=== PATIENT | female | born 1975 | race Caucasian/White ===

== ENCOUNTER 2021-02-20 18:11 | Emergency (ER) | payer BC, SELFPAY ==
--- NOTE | ~2021-02-20 | CT_ITS ---
EXAMINATION: CTA brain carotid DATE: 02/20/2021 19:58 INDICATION: Headache with visual change. TECHNIQUE: Computed tomographic angiography (CTA) of the head was performed without and with 100 mL O mnipaque-350 intravenous contrast. CTA of the neck was performed with intravenous contrast. Automated exposure control and iterative reconstruction technique were employed. The dose-length product was 1 747.93 mGy-cm. Maximum intensity projection and volume rendered 3D-reconstructions were created by e technologist on a separate workstation. COMPARISON: Head CT 09/01/2005 FINDINGS: HEAD CTA: There is no intracranial hemorrhage, acute infarction, or abnormal intracranial mass lesion . The ventricles are normal in size. The orbits are normal. The mastoid air cells are normal. The par anasal sinuses are clear. Left vertebral artery is dominant. There is no significant of stenosis of b asilar artery or the posterior cerebral arteries. There is no significant stenosis of the intracrania l internal carotid arteries or anterior or middle cerebral arteries. Anterior communicating artery is normal. The posterior communicating arteries are normal. There is no aneurysm. NECK CTA: There is mild emphysema. There are widespread groundglass opacities in the lungs with septa l thickening. There are nodules in the lungs measuring up to 7 mm on the right. There is mild mediast inal lymphadenopathy. There are nodules in the thyroid measuring up to 12 mm, likely not clinically s ignificant. There is no significant stenosis of the vertebral arteries. There is minimal plaque in th e proximal internal carotid arteries. There is 0% stenosis of the proximal right internal carotid art mil relative to normal distal artery lumen diameter (NASCET criteria). There is 0% stenosis of the pr oximal left internal carotid artery relative to normal distal artery lumen diameter. There is moderat e cervical spondylosis. IMPRESSION: 1. Normal brain. No aneurysm or significant intracranial arterial stenosis. 2. 0% stenosis of the proximal internal carotid arteries relative to normal distal artery lumen diame ters (NASCET criteria). 3. Diffuse disease at the visualized portions of the lung apices, likely mild pulmonary edema. 4. Mild emphysema. 5. Pulmonary nodules measuring up to 7 mm, probably benign. Noncontrast, low-dose chest CT is recomme nded in 6 months. 6. Mild mediastinal lymphadenopathy. Reviewed, dictated and finalized at location A. IMPRESSION: 1. Normal brain. No aneurysm or significant intracranial arterial stenosis. 2. 0% stenosis of the proximal internal carotid arteries relative to normal dis daryl artery lumen diameters (NASCET criteria). 3. Diffuse disease at the visualized portions of the lung apices, likely mild p ulmonary edema. 4. Mild emphysema. 5. Pulmonary nodules measuring up to 7 mm, probably benign. Noncontrast, low-do se chest CT is recommended in 6 months. 6. Mild mediastinal lymphadenopathy.
[2021-02-20 18:17] VITALS: BP 147/90; PULSE 120; RESP 18; TEMP 36; O2SAT 98
--- NOTE | 2021-02-20 18:31 | ECG_ITS ---
Measurements Intervals [place] Rate: 41 P: [place]: 0 QRS: 210 QRSD: 154 T: -83 QT: 662 QTc: 548 Interpretive Statements SINUS RHYTHM INCOMPLETE RIGHT BUNDLE BRANCH BLOCK DELAYED PRECORDIAL R/S TRANSITION MINIMAL Q WAVES- INFERIOR LEADS BORDERLINE T WAVE ABNORMALITY- ANT/INF LEADS BASELINE ARTIFACT- II, III, AVR, AVF, V3-V6 BORDERLINE ECG Electronically Signed On 02-21-2021 15:32:48 CDT by Obey Doyle D.O.
[2021-02-20 18:54] LABS: Basophils Percent Auto 0.4 % (0.2-1.2); Eosinophils Absolute Auto 0.2 K/mm3 (0-0.3); Eosinophils Percent Auto 1.6 % (0-4.4); Hematocrit 45.8 % (37.0-47.0); Hemoglobin 15.5 g/dL (12.0-15.0); Immature Granulocyte Absolute 0.05 K/mm3 (0.00-0.031); Immature Granulocyte Percent A 0.5 % (0-0.5); Lymphocytes Absolute Auto 2.72 K/mm3 (0.9-3.2); Lymphocytes Percent Auto 27.5 % (18.3-44.2); Mean Corpuscular HGB Conc 33.8 g/dl (32-36); Mean Corpuscular Hemoglobin 32.3 pg (26-34); Mean Corpuscular Volume 95.4 fl (80-100); Mean Platelet Volume 9.1 fl (7.4-10.4); Monocytes Absolute Auto 0.4 K/mm3 (0.1-0.6); Monocytes Percent Auto 4.4 % (2.6-8.5); Neutrophils Absolute Auto 6.5 K/mm3 (1.3-6.7); Neutrophils Percent Auto 65.6 % (45.5-73.1); Platelet Count Result 356 k/mm3 (150-375); White Blood Count 9.9 K/mm3 (4.5-10.0)
[2021-02-20 19:10] LABS: Anion Gap 8 mmol/L (8-16); Blood Urea Nitrogen 8 mg/dL (7-17); Calcium 9.9 mg/dL (8.4-10.2); Carbon Dioxide 28 mmol/L (22-30); Chloride 102 mmol/L (98-107); Estimated Glomerular Filt Rate > 60; Glucose 142 mg/dL (65-105); Potassium 3.7 mmol/L (3.4-5.0); Sodium 138 mmol/L (137-145)
[2021-02-20 19:22] LABS: Troponin I < 0.012 ng/mL (0.000-0.034)
--- NOTE | 2021-02-20 19:24 | ED.GENADULT ---
HPI - General Adult General Chief complaint: Neuro Symptoms/Deficit Stated complaint: vision changes/ neuro sx Time Seen by Provider: 02/20/21 18:25 History of Present Illness HPI narrative: Patient is a 46-year-old female who presents ER with visual changes. Occurred about 3 PM. Reports she was driving when she had 15 seconds of cloudy vision in her right eye. After that she developed a headache from the back of her head bubbling towards the front of her head. This has been happening to her intermittently over the last couple months. Occasionally will be both eyes and it is typically associated with a headache that comes afterwards. Patient also has history of chronic headaches related to a accident in years past but these headaches are different. She has no facial droop or slurred speech or extremity numbness/weakness when this occurs. No history of CVA. She does report she has a history of elevated heart rate. Related Data Home Medications Medication Instructions Recorded Confirmed No Home Medications 02/20/21 Allergies Allergy/AdvReac Type Severity Reaction Status Date / Time prednisone Allergy Intermediate vomit Verified 02/20/21 18:41 aspirin Allergy Unknown abdominal Verified 02/20/21 18:41 pain morphine Allergy Unknown Anaphylactic Verified 02/20/21 18:41 Shock Review of Systems Review of Systems: All systems reviewed & are unremarkable except as noted in HPI and below Constitutional: Constitutional: Denies chills, Denies fever(s) and Denies weakness Eyes: Eyes: Reports change in vision and Denies photophobia Cardiovascular: Cardiovascular: Denies chest pain, Reports rapid heart rate and Denies radiating jaw, neck or arm pain Respiratory: Respiratory: Denies cough and Denies dyspnea Neurologic: Denies dizziness, Denies syncope, Reports headache(s), Denies focal weakness, Denies numbness and Denies weakness PMF Past Medical History Medical History (Updated 02/20/21 @ 21:15 by Kraig Feldman MD) Allergic asthma Chronic headaches Mixed hyperlipidemia Surgical History Surgical History (Updated 02/20/21 @ 19:26 by Kraig Feldman MD) History of tubal ligation Family History Family History (Updated 07/01/18 @ 15:45 by DOCTOR UNKNOWN) Father Diabetes mellitus Family history of cardiovascular disease Family history of malignant neoplasm of brain, Onset Age: 62 Mother Diabetes mellitus Hypertension Patient's mother is in good health Family history of cardiovascular disease Sibling Patient's sister is in good health Patient's brother is in good health Social History Social History (Updated 09/13/19 @ 10:26 by Isabell Alford) Smoking packs per day: 0.5 Smoking cigarettes per day: 10.0 Smoking status: Current every day smoker Tobacco type: cigarettes Second hand tobacco smoke exposure: Yes Alcohol intake: never Substance use: never Substance use type: does not use Gender identity (if verbalized by the patient): Female Exam Narrative: Exam Narrative: GENERAL: Well-appearing, well-nourished, and in no acute distress. HEAD: Normocephalic, atraumatic. EYES: PERRLA and EOMI. ENT: Mucous membranes moist. CHEST: Clear to auscultation. No respiratory distress. HEART: Regular rate and rhythm. Normal peripheral pulses. ABDOMEN: Soft, nontender, nondistended. EXTREMITIES: Normal range of motion. No edema. SKIN: Warm, dry, no rash. NEURO: No upper or lower extremity drift. Cranial nerves II through XII intact. No dysarthria or expressive aphasia. Alert and oriented x3. Course Course Emergency Course: Resting comfortably. No symptoms here. Discharge home. Informed of abnormal lung findings. She has follow-up with Dr. Penn scheduled. Vital Signs Vital signs: Vital Signs Temperature 96.8 F L 02/20/21 18:17 Pulse Rate 120 H 02/20/21 18:17 Respiratory Rate 18 02/20/21 18:17 Blood Pressure 147/90 H
[2021-02-20 19:28] LABS: Prothrombin Time 13.8 Seconds (11.1-14.7)
[2021-02-20 19:29] LABS: Partial Thromboplastin Time 31.5 SECONDS (22.3-36.8)
[2021-02-20 21:26] VITALS: BP 137/86; PULSE 94; RESP 16; TEMP 36.8; O2SAT 98
== END 2021-02-20 21:27 | disposition home or self-care (01) ==
PROVIDERS: Emergency Provider Emergency Medicine
DX: G43.909 Migraine, unspecified, not intractable, without status migrainosus (principal); E78.2 Mixed hyperlipidemia; J45.909 Unspecified asthma, uncomplicated; F17.210 Nicotine dependence, cigarettes, uncomplicated; J43.9 Emphysema, unspecified; R91.8 Other nonspecific abnormal finding of lung field; R00.0 Tachycardia, unspecified; I45.10 Unspecified right bundle-branch block; R94.31 Abnormal electrocardiogram [ECG] [EKG]
CPT/HCPCS: 36415; 70496; 70498; 80048; 81025; 84484; 85025; 85610; 85730; 93005; 99284; Q9967

== ENCOUNTER 2021-03-12 12:09 | Outpatient (CLI) | payer BC, SELFPAY ==
--- NOTE | 2021-03-12 12:28 | ECHO_ITS ---
Patient Info Name: Prema Oswald Age: 46 years : 1975 Gender: Female Ht: 65 in Wt: 207 lbs BSA: 2.11 m2 HR: 95 bpm BP: 132 / 85 mmHg Technical Quality: Good Exam Date: 03/12/2021 1:07 PM Exam Location: [facility] Pulmonary Patient Status: Outpatient Admit Date: 03/12/2021 Staff Ordering Physician: Hortensia Mulligan Mobile Security Specialist: ISABEL Attending Provider: Hortensia Mulligan Referring Physician: Ese BERNSTEIN; Exam Type: CA echo doppler color flow Study Info Indications J81.1 - Chronic pulmonary edema Complete two-dimensional, color flow and Doppler transthoracic echocardiogram is performed. Summary 1. Complete two-dimensional, color flow and Doppler transthoracic echocardiogram is performed. 2. Left ventricular chamber dimension is normal. 3. Left ventricular systolic function is normal, estimated at 65-70%. 4. The left ventricular diastolic function is normal. 5. E/e' 7 is not elevated. 6. No pulmonary hypertension, estimated pulmonary arterial systolic pressure is 17 mmHg. Left Ventricle E/e' 7 is not elevated. Left ventricular chamber dimension is normal. Left ventricular systolic function is normal, estimated at 65-70%. The left ventricular diastolic function is normal. Right Ventricle Right ventricular chamber dimension is normal. Right ventricular systolic function is normal. Left Atria Left atrial chamber dimension is normal. Right Atria Right atrial chamber dimension is normal. Aortic Valve The aortic valve is trileaflet. There is no aortic valve stenosis. There is no aortic valve regurgitation. Pulmonic Valve There is no pulmonic regurgitation. Mitral Valve There is no mitral valve stenosis. There is no mitral valve regurgitation. Tricuspid Valve There is no tricuspid valve regurgitation. No pulmonary hypertension, estimated pulmonary arterial systolic pressure is 17 mmHg. Pericardium/Pleural There is no pericardial effusion. Inferior Vena Cava Normal inferior vena cava with >50% collapse upon inspiration consistent with normal right atrial pressure, 5 mmHg. Aorta The aortic root size at the sinus of Valsalva is normal. Left Ventricular Outflow Tract Name Value Normal LVOT 2D LVOT Diameter 2.1 cm LVOT Doppler LVOT Peak Gradient 3 mmHg LVOT Mean Gradient 2 mmHg LVOT VTI 18 cm LVOT VTI/AV VTI Ratio 0.8 LVOT Stroke Volume 61 ml LVOT CO 12.6 l/min LVOT CI 6.0 l/min/m2 Pulmonic Valve Name Value Normal PV Doppler PV Peak Gradient 7 mmHg Mitral Valve Name
== END 2021-03-12 12:10 | disposition home or self-care (01) ==
PROVIDERS: PCP Internal Medicine; Visit Provider Clinical Nurse Specialist
DX: J81.1 Chronic pulmonary edema (principal)
CPT/HCPCS: 93306

== ENCOUNTER 2022-07-14 10:57 | Outpatient (CLI) | payer BC, SELFPAY ==
[2022-07-14 19:07] LABS: Basophils Percent Auto 0.4 % (0.2-1.2); Eosinophils Absolute Auto 0.2 K/mm3 (0-0.3); Eosinophils Percent Auto 2.4 % (0-4.4); Hematocrit 43.7 % (37.0-47.0); Immature Granulocyte Absolute 0.02 K/mm3 (0.00-0.031); Immature Granulocyte Percent A 0.2 % (0-0.5); Lymphocytes Absolute Auto 2.54 K/mm3 (0.9-3.2); Lymphocytes Percent Auto 24.9 % (18.3-44.2); Mean Corpuscular Hemoglobin 30.2 pg (26-34); Mean Corpuscular Volume 94.4 fl (80-100); Mean Platelet Volume 10.1 fl (7.4-10.4); Monocytes Absolute Auto 0.3 K/mm3 (0.1-0.6); Monocytes Percent Auto 3.3 % (2.6-8.5); Neutrophils Percent Auto 68.8 % (45.5-73.1); Platelet Count Result 337 k/mm3 (150-375); Red Blood Count 4.63 M/mm3 (4.2-5.4); Red Cell Distribution Width 13.6 % (11.5-14.5); White Blood Count 10.2 K/mm3 (4.5-10.0)
[2022-07-14 19:18] LABS: Alanine Aminotransferase 45 U/L (6-35); Albumin Level 4.4 g/dL (3.5-5.1); Alkaline Phosphatase 124 U/L (38-126); Anion Gap 12 mmol/L (8-16); Aspartate Amino Transferase 47 U/L (14-36); Bilirubin,Total 0.4 mg/dL (0.2-1.3); Blood Urea Nitrogen 10 mg/dL (7-17); Calcium 9.5 mg/dL (8.4-10.2); Carbon Dioxide 29 mmol/L (22-30); Chloride 100 mmol/L (98-107); Cholesterol 166 mg/dL (0-200); Estimated Glomerular Filt Rate > 60; Glucose 84 mg/dL (65-110); HDL Direct 35 mg/dL; Magnesium 2.1 mg/dL (1.6-2.3); Potassium 4.3 mmol/L (3.4-5.0); Sodium 141 mmol/L (137-145); Triglycerides 174 mg/dL (<150)
[2022-07-14 19:29] LABS: LDL Cholesterol Direct 90 mg/dL
[2022-07-14 19:40] LABS: Iron 65 ug/dL (37-170)
[2022-07-14 19:40] LABS: Hemoglobin A1C 5.4 % (<5.7)
[2022-07-14 19:53] LABS: Appearance Urine Clear (Clear); Bilirubin Urine Negative (Negative); Blood Urine Negative (Negative); Color Urine Yellow (Yellow); Glucose Urine UA Negative (Negative); Ketones Urine Negative (Negative); Leukocyte Esterase Ur Negative LEU/UL (Negative); Nitrate Urine Negative (Negative); Protein Urine Negative (Negative); Urobilinogen Urine 0.2 mg/dL (<2.0)
[2022-07-14 19:54] LABS: Add Urine Microscopic? NO; Percent Iron Saturation 16 % (20-50)
[2022-07-14 20:49] LABS: Vitamin D 25 Hydroxy 28.8 ng/mL
== END 2022-07-14 10:58 | disposition home or self-care (01) ==
LOC: ANHGOSHLAB 11:02
PROVIDERS: PCP Internal Medicine; Visit Provider Clinical Nurse Specialist
DX: Z13.228 Encounter for screening for other metabolic disorders (principal); E78.2 Mixed hyperlipidemia; E55.9 Vitamin D deficiency, unspecified; F41.9 Anxiety disorder, unspecified; R25.2 Cramp and spasm; R73.9 Hyperglycemia, unspecified; R31.9 Hematuria, unspecified
CPT/HCPCS: 36415; 80053; 80061; 81003; 82306; 82728; 83036; 83540; 83550; 83735; 84443; 85025

== ENCOUNTER 2022-08-31 02:31 | Emergency (ER) | payer BC, SELFPAY ==
--- NOTE | ~2022-08-31 | XR_ITS ---
EXAMINATION: XR chest 1V portable INDICATION: Cough, asthma TECHNIQUE: Portable AP chest at 0313 hours COMPARISON: 05/02/2019 FINDINGS: The lungs are free of acute opacities. No pleural effusion or pneumothorax. The cardiomedia stinal silhouette is normal. IMPRESSION: 1. No acute cardiopulmonary abnormality. Reviewed, dictated and finalized at location A. PUBLISHER
[2022-08-31 02:33] VITALS: BP 151/71; PULSE 120; RESP 20; TEMP 36.8; O2SAT 97
--- NOTE | 2022-08-31 03:08 | ED.GENADULT ---
HPI - General Adult General Chief complaint: Shortness of Breath/Dyspnea Stated complaint: dyspnea, cough asthma Time Seen by Provider: 08/31/22 02:32 History of Present Illness HPI narrative: 47-year-old female with history of asthma presenting to the emergency department for evaluation of cough and shortness of breath. Patient states on Thursday she went to a client's house and was exposed to a lot of cat dander. Patient states that she began having worsening cough on Thursday and that this is symptoms have persisted. Patient has been using her albuterol inhaler and also used her child's nebulizer without significant improvement. Patient denies any chest pain. Patient denies any history of congestive heart failure. Patient has a past medical history of asthma, emphysema and is currently a smoker. Patient reports she did get vaccinated against COVID but has not been vaccinated against the flu Related Data Home Medications Medication Instructions Recorded Confirmed aspirin 81 mg tablet,delayed 81 mg PO DAILY 03/27/21 07/17/22 release (Adult Aspirin Regimen) Allergies Allergy/AdvReac Type Severity Reaction Status Date / Time prednisone Allergy Intermediate vomit Verified 07/17/22 13:37 aspirin Allergy Unknown abdominal Verified 07/17/22 13:37 pain morphine Allergy Unknown Anaphylactic Verified 07/17/22 13:37 Shock Review of Systems Review of Systems: CONSTITUTIONAL: Denies fever, chills, or sweats. EYES: Denies visual changes, redness, or discharge. ENT: Denies rhinorrhea, congestion, sore throat, or otalgia. CARDIOVASCULAR: Denies chest pain, palpitations, or edema. RESPIRATORY: Cough and shortness of breath GASTROINTESTINAL: Denies abdominal pain, nausea, vomiting, or diarrhea. GENITOURINARY: Denies dysuria or hematuria. SKIN: Denies rash or itching. MUSCULOSKELETAL: Denies back pain, joint pain, or myalgia. NEUROLOGIC: Denies headache, numbness, or weakness. FORMERLY [facility] Past Medical History Medical History Allergic asthma Chronic headaches IBS (irritable bowel syndrome) Mixed hyperlipidemia Surgical History Surgical History H/O exploratory laparotomy History of tubal ligation Family History Family History Father Diabetes mellitus Family history of cardiovascular disease Family history of malignant neoplasm of brain, Onset Age: 62 Depression Heart disease Hypertension Mother Diabetes mellitus Hypertension Patient's mother is in good health Family history of cardiovascular disease Sibling Patient's sister is in good health Patient's brother is in good health Grandparent Depression Cancer Alcoholism Social History Social History Smoking packs per day: 0.5 Smoking cigarettes per day: 10.0 Smoking status: Current every day smoker Tobacco type: cigarettes Second hand tobacco smoke exposure: Yes Alcohol intake: never Substance use: never Substance use type: does not use Gender identity (if verbalized by the patient): Female Exam Narrative: APPEARANCE: Well appearing, no pain, no distress, well-nourished. HEAD: normocephalic, atraumatic. EYES: PERRLA/EOMI, conjunctivae clear. NOSE: Normal no drainage EARS:TMS clear with good light reflex. THROAT: Pharynx clear, no exudate. NECK: Supple. No adenopathy, no masses. RESPIRATORY: Lungs clear to auscultation but patient does have cough CARDIOVASCULAR: Regular rate and rhythm without murmurs rubs or gallops. ABDOMINAL: Soft, nontender, nondistended, normal bowel sounds MUSCULOSKELETAL: Moves all extremities. Strength/ROM intact, No edema, No calf tenderness. NEURO: Alert. Cranial nerves II through XII intact. Grossly intact SKIN: Warm, dry. Normal Color Course Course Emergen
[2022-08-31 03:33] LABS: Influenza A QL RT-PCR Negative (Negative); Influenza B QL RT-PCR Negative (Negative); SARS-CoV-2 RNA PCR Negative
[2022-08-31 03:35] VITALS: PULSE 87; RESP 22; O2SAT 100
[2022-08-31] MEDS: ALBUTEROL SULFATE NEB 2.5 MG/3 ML INH 5 MG INHALATION (03:35)
[2022-08-31 03:54] VITALS: PULSE 90; RESP 20
[2022-08-31] MEDS: BENZONATATE 100 MG CAPSULE 200 MG PO (05:43)
== END 2022-08-31 05:46 | disposition home or self-care (01) ==
PROVIDERS: Emergency Provider Emergency Medicine; PCP Internal Medicine
DX: J18.9 Pneumonia, unspecified organism (principal); J45.909 Unspecified asthma, uncomplicated; Z20.822 Contact with and (suspected) exposure to COVID-19; E78.2 Mixed hyperlipidemia; K58.9 Irritable bowel syndrome, unspecified; F17.210 Nicotine dependence, cigarettes, uncomplicated; Z79.82 Long term (current) use of aspirin
CPT/HCPCS: 71045; 87636; 94640; 99283; A9270

== ENCOUNTER → 2022-09-05 11:15 | Outpatient (CLI) | payer BC, SELFPAY ==
--- NOTE | ~2022-09-05 | XR_ITS ---
XR wrist RT min 3V DATE: 09/05/2022 11:25 INDICATION: Radial right wrist pain for one month TECHNIQUE: 4 views COMPARISON: 04/29/2006 right wrist FINDINGS: No fracture or dislocation, periosteal reaction or bone destruction, erosive change or deuce drocalcinosis. Joint spaces are well preserved. IMPRESSION: Negative Reviewed, dictated and finalized at location B. NING ROOM OPERATOR IMPRESSION: Negative
== END ==
PROVIDERS: PCP Clinical Nurse Specialist; Visit Provider Clinical Nurse Specialist
DX: M25.531 Pain in right wrist (principal)
CPT/HCPCS: 73110

== ENCOUNTER 2022-09-20 22:14 | Emergency (ER) | payer BC, SELFPAY ==
[2022-09-20 22:17] VITALS: BP 143/67; PULSE 94; RESP 18; TEMP 36.8; O2SAT 98
--- NOTE | 2022-09-20 22:39 | ED.ALLEREA ---
HPI - Allergic Reaction General Chief complaint: Allergic Reaction <Karrie Fraser PA-C - Last Filed: 09/20/22 23:38> Stated complaint: swelling in the eye, after doxycycline use <Karrie Fraser PA-C - Last Filed: 09/20/22 23:38> Time Seen by Provider: 09/20/22 22:23 <Karrie Fraser PA-C - Last Filed: 09/20/22 23:38> Source: patient <ALMA Townsend Last Filed: 09/20/22 23:38> Mode of arrival: ambulatory <ALMA Townsend Last Filed: 09/20/22 23:38> Limitations: no limitations <Karrie Fraser PA-C - Last Filed: 09/20/22 23:38> History of Present Illness HPI narrative: This is a 47 year old female that presents to the ER for bilateral eye swelling. Ongoing over the last 4 days. Reports she started Doxycycline for a respiratory infection on Thursday and noted swelling that day. It was associated with redness and discharge from the eyes. She was prescribed Olopatadine with relief of the redness and discharge. Reports she has had continued swelling and pain in the eyes. Denies fever, visual changes. <Karrie Fraesr PA-C - Last Filed: 09/20/22 23:38> Related Data Home medications: Home Medications Medication Instructions Recorded Confirmed aspirin 81 mg tablet,delayed 81 mg PO DAILY 03/27/21 09/17/22 release (Adult Aspirin Regimen) <ALMA Townsend Last Filed: 09/20/22 23:38> Allergies/adverse reactions: Allergies Allergy/AdvReac Type Severity Reaction Status Date / Time prednisone Allergy Intermediate vomit Verified 09/20/22 22:39 aspirin Allergy Unknown abdominal Verified 09/20/22 22:39 pain morphine Allergy Unknown Anaphylactic Verified 09/20/22 22:39 Shock doxycycline Allergy Swelling Verified 09/20/22 22:39 of the Eye <ALMA Townsend Last Filed: 09/20/22 23:38> Review of Systems Review of Systems: CONSTITUTIONAL: Denies fever EYES: Denies current visual changes, redness, or discharge. ENT: Reports congestion CARDIOVASCULAR: Denies chest pain RESPIRATORY: Reports cough GASTROINTESTINAL: Denies vomiting SKIN: Denies rash or itching. MUSCULOSKELETAL: Denies back pain, joint pain, or myalgia. NEUROLOGIC: Denies headache, numbness, or weakness. PSYCHIATRIC: Denies anxiety or depression. <Karrie Fraser PA-C - Last Filed: 09/20/22 23:38> All systems reviewed & are unremarkable except as noted in HPI and below <Karrie Fraser PA-C - Last Filed: 09/20/22 23:38> PENDING SALE TO [facility] Past Medical History Medical History: Medical History Allergic asthma Chronic headaches IBS (irritable bowel syndrome) Mixed hyperlipidemia <Karrie Fraser PA-C - Last Filed: 09/20/22 23:38> Surgical History Surgical History: Surgical History (Reviewed 09/05/22 @ 10:15 by Vonnie Dominguez [facility]) H/O exploratory laparotomy History of tubal ligation <Karrie Fraser PA-C - Last Filed: 09/20/22 23:38> Family History Family History: Family History (Reviewed 09/05/22 @ 10:15 by Vonnie Dominguez [facility]) Father Diabetes mellitus Family history of cardiovascular disease Family history of malignant neoplasm of brain, Onset Age: 62 Depression Heart disease Hypertension Mother Diabetes mellitus Hypertension Patient's mother is in good health Family history of cardiovascular disease Sibling Patient's sister is in good health Patient's brother is in good health Grandparent Depression Cancer Alcoholism <Karrie Fraser PA-C - Last Filed: 09/20/22 23:38> Social History Social History: Social History (Updated 09/05/22 @ 10:27 by Vonnie Dominguez [facility]) Smoking packs per day: 0.5 Smoking cigarettes per day: 10.0 Smoking status: Former smoker Tobacco type: cigarettes Second hand tobacco smoke exposure: Yes Smoking end date: 08/26/22 Alcohol intake: never Substance use: never Substance use type: does n
== END 2022-09-20 23:45 | disposition home or self-care (01) ==
PROVIDERS: Emergency Provider Emergency Medicine; PCP Internal Medicine
DX: T78.40XA Allergy, unspecified, initial encounter (principal); J98.8 Other specified respiratory disorders; J45.909 Unspecified asthma, uncomplicated; K58.9 Irritable bowel syndrome, unspecified; E78.2 Mixed hyperlipidemia; Z87.891 Personal history of nicotine dependence; Z79.82 Long term (current) use of aspirin
CPT/HCPCS: 99282

== ENCOUNTER 2022-10-06 08:31 | Outpatient (CLI) | payer BC, SELFPAY ==
--- NOTE | ~2022-10-06 | CT_ITS ---
Clinical Indication: Pulmonary nodules CT Scan of the Chest with Contrast: Technique: Contiguous sections were acquired throughout the chest after intravenous administration of 75 cc of Omnipaque 350. Dose reduction technique was used on this scan by utilizing automated exposu re control and iterative reconstruction technique. The dose-length product (DLP) was 433.93 mGy-cm. Findings: Subcarinal lymph node is mildly enlarged, measuring 1.2 cm in short axis. There are shotty right para tracheal, right hilar, and AP window lymph nodes. There is no filling defect in the pulmonary arteria l tree to suggest pulmonary embolus. There is no evidence of aortic dissection or aneurysm. There is no evidence of pleural or pericardial effusion. Minimal emphysema present. There are subcentimeter right upper lobe pulmonary nodules measuring up to approximately 4 to 5 mm in diameter (axial images 52, 56, 58). There is a 4 mm noncalcified left upp er lobe pulmonary nodule (axial image 58). There is a 3 mm left lower lobe pulmonary nodule (axial im age 87). Several calcified granulomas are noted. Images through the upper abdomen reveal 1.3 cm left adrenal nodule, indeterminate. Impression: Multiple subcentimeter pulmonary nodules, as detailed above. According to Fleischner Society criteria , for a low-risk patient, no further follow-up required. For a high-risk patient, consider 12 month f ollow-up CT. Minimal emphysema. Minimally prominent mediastinal lymph nodes, as detailed above, nonspecific. Reviewed, dictated and finalized at location [] JUICE WEIGHER Impression: Multiple subcentimeter pulmonary nodules, as detailed above. According to Fleis chner Society criteria, for a low-risk patient, no further follow-up required. For a high-risk patient, consider 12 month follow-up CT. Minimal emphysema. Minimally prominent mediastinal lymph nodes, as detailed above, nonspecific.
== END 2022-10-06 08:32 | disposition home or self-care (01) ==
LOC: ANHIMG 08:35
PROVIDERS: PCP Internal Medicine; Visit Provider Clinical Nurse Specialist
DX: R91.8 Other nonspecific abnormal finding of lung field (principal); J43.9 Emphysema, unspecified
CPT/HCPCS: 71260; Q9967

== ENCOUNTER 2023-01-20 11:45 | Outpatient (CLI) | payer BC, SELFPAY ==
[2023-01-23 15:03] LABS: NIL 0.05 IU/mL; Quantiferon TB Plus, 1T NEGATIVE (NEGATIVE); TB1-NIL 0.03 IU/mL; TB2-NIL 0.03 IU/mL
== END 2023-01-20 11:46 | disposition home or self-care (01) ==
LOC: ANHGOSHLAB 11:45
PROVIDERS: PCP Internal Medicine; Visit Provider Clinical Nurse Specialist
DX: Z11.1 Encounter for screening for respiratory tuberculosis (principal)
CPT/HCPCS: 36415; 86480

== ENCOUNTER 2023-08-11 21:14 | Emergency (ER) | payer BC, SELFPAY ==
--- NOTE | 2023-08-11 21:15 | PC.NURSE ---
patient states wait is too long and left before triage
== END 2023-08-11 21:46 | disposition left against medical advice (07) ==
PROVIDERS: PCP Internal Medicine
DX: Z53.21 Procedure and treatment not carried out due to patient leaving prior to being seen by health care provider (principal)
CPT/HCPCS: 99199

== ENCOUNTER 2024-01-27 10:48 | Outpatient (CLI) | payer BC, SELFPAY ==
[2024-01-27 13:03] LABS: Basophils Percent Auto 0.4 % (0.2-1.2); Eosinophils Absolute Auto 0.2 K/mm3 (0-0.3); Eosinophils Percent Auto 2.1 % (0-4.4); Hematocrit 42.9 % (37.0-47.0); Hemoglobin 13.7 g/dL (12.0-15.0); Immature Granulocyte Absolute 0.02 K/mm3 (0.00-0.031); Immature Granulocyte Percent A 0.3 % (0-0.5); Lymphocytes Absolute Auto 2.84 K/mm3 (0.9-3.2); Mean Corpuscular HGB Conc 31.9 g/dl (32-36); Mean Corpuscular Hemoglobin 30.2 pg (26-34); Mean Corpuscular Volume 94.5 fl (80-100); Mean Platelet Volume 9.5 fl (7.4-10.4); Monocytes Absolute Auto 0.4 K/mm3 (0.1-0.6); Monocytes Percent Auto 5.3 % (2.6-8.5); Neutrophils Absolute Auto 4.2 K/mm3 (1.3-6.7); Neutrophils Percent Auto 54.9 % (45.5-73.1); Platelet Count Result 315 k/mm3 (150-375); Red Blood Count 4.54 M/mm3 (4.2-5.4); Red Cell Distribution Width 13.8 % (11.5-14.5); White Blood Count 7.7 K/mm3 (4.5-10.0)
[2024-01-27 13:17] LABS: Alanine Aminotransferase 50 U/L (6-35); Alkaline Phosphatase 122 U/L (38-126); Anion Gap 9 mmol/L (4-12); Aspartate Amino Transferase 65 U/L (14-36); Bilirubin,Total 0.5 mg/dL (0.2-1.3); Blood Urea Nitrogen 16 mg/dL (7-17); Calcium 10.5 mg/dL (8.4-10.2); Carbon Dioxide 29 mmol/L (22-30); Chloride 103 mmol/L (98-107); Cholesterol 155 mg/dL (0-200); Estimated Glomerular Filt Rate > 60; Glucose 106 mg/dL (65-110); HDL Direct 47 mg/dL; Potassium 4.4 mmol/L (3.4-5.0); Sodium 141 mmol/L (137-145); Triglycerides 113 mg/dL (<150)
[2024-01-27 13:28] LABS: LDL Cholesterol Direct 86 mg/dL
[2024-01-27 14:35] LABS: Vitamin D 25 Hydroxy 20.8 ng/mL
[2024-01-27 17:25] LABS: Hemoglobin A1C 5.3 % (<5.7)
== END 2024-01-27 10:49 | disposition home or self-care (01) ==
LOC: ANHGOSHLAB 10:50
PROVIDERS: PCP Clinical Nurse Specialist; Visit Provider Clinical Nurse Specialist
DX: E55.9 Vitamin D deficiency, unspecified (principal); F41.9 Anxiety disorder, unspecified; R73.09 Other abnormal glucose; Z13.220 Encounter for screening for lipoid disorders; Z13.228 Encounter for screening for other metabolic disorders
CPT/HCPCS: 36415; 80053; 80061; 82306; 83036; 84443; 85025

== ENCOUNTER 2024-02-11 08:49 | Outpatient (CLI) | payer BC, SELFPAY ==
--- NOTE | 2024-02-17 19:46 | WPDHOMESLEEP ---
Sleep Study - Home Unattended Date of Study: 02/11/24 Ordering Provider: MARY Parikh-Erasmo Interpreting Provider: Maddie Linares DO Home Sleep Study Type: Watch PAT Height: 1.65 m Weight: 101.605 kg Body Mass Index: 37.3 Neck Circumference (inches): 16.5 Harrell: 3 Reason for Sleep Study Hypersomnia Sleep History The patient is a 49-year-old female with asthma, chronic headaches, irritable bowel syndrome, hyperlipidemia, pulmonary nodules and history of tobacco use that had a sleep study ordered by her primary care for evaluation of sleep apnea. The sleep history forms were unavailable. [facility] Past Medical History Medical History Allergic asthma Chronic headaches IBS (irritable bowel syndrome) Mixed hyperlipidemia Tobacco dependence due to cigarettes Quit 1 year ago. Surgical History Surgical History H/O exploratory laparotomy History of tubal ligation Family History Family History Father Diabetes mellitus Family history of cardiovascular disease Family history of malignant neoplasm of brain, Onset Age: 62 Depression Heart disease Hypertension Mother Diabetes mellitus Hypertension Patient's mother is in good health Family history of cardiovascular disease Sibling Patient's sister is in good health Patient's brother is in good health Grandparent Depression Cancer Alcoholism Social History Social History Social History: Caffeine- Smoking packs per day: 0.5 Smoking cigarettes per day: 10.0 Smoking status: Former smoker Tobacco type: cigarettes Second hand tobacco smoke exposure: Yes Smoking end date: 08/26/22 Alcohol intake: never Substance use: never Substance use type: does not use Lack of Transportation: No Lack of Food: Sometimes True Current Housing: I Have Housing Concerned About Future Housing: No Difficulty Paying Gas/Electric Bills: No Difficulty Paying for Meds: No Currently Unemployed: No Education: Associate Degree Difficulty w/ Childcare or Family Care: YES Living arrangements: with family Occupation/Education: occupation Gender identity (if verbalized by the patient): Female Medications Home Medications Medication Instructions Recorded Confirmed Type aspirin 81 mg tablet,delayed 81 mg PO DAILY 03/27/21 01/27/24 History release (Adult Aspirin Regimen) triamcinolone acetonide 0.1 % 1 applic topical TID #30 grams 07/17/22 01/27/24 Rx topical cream ondansetron 4 mg disintegrating 4 mg PO Q8H PRN nausea and 08/31/22 01/27/24 Rx tablet vomiting #14 tabs benzonatate 100 mg capsule 100 mg PO TID PRN cough #30 caps 10/05/23 01/27/24 Rx albuterol sulfate 2.5 mg/0.5 mL 5 mg inhalation Q6H PRN 01/28/24 Rx solution for nebulization bronchospasm #30 ea albuterol sulfate 90 mcg/actuation 1 puff inhalation Q4H PRN 01/28/24 Rx aerosol inhaler shortness of breath or wheezing #8.5 grams atorvastatin 10 mg tablet See Rx Instructions .Route 01/28/24 Rx .COMPLEX #90 tabs buspirone 10 mg tablet 10 mg PO BID PRN anxiety #180 tabs 01/28/24 Rx semaglutide (weight loss) 0.25 0.25 mg (0.5 mL) subcut WEEKLY #2 01/28/24 Rx mg/0.5 mL subcutaneous pen mL injector (Wegovy) sertraline 100 mg tablet See Rx Instructions .Route 01/28/24 Rx .COMPLEX #90 tabs Sleep Procedure The sleep study was completed using WatchPAT a technically adequate device with seven channels: peripheral arterial tone, actigraphy, body position, snore, respiratory movement, pulse oximetry, sleep staging, and heart rate. Prior to using the device, the patient received verbal and written instructions for its application and was provided with the help desk phone number for additional telephonic
[2024-02-17 19:55] VITALS: BMI 37.3
== END 2024-02-12 13:50 | disposition home or self-care (01) ==
LOC: ANHCSM 08:49
PROVIDERS: PCP Clinical Nurse Specialist; Visit Provider Clinical Nurse Specialist
DX: G47.10 Hypersomnia, unspecified (principal); G47.33 Obstructive sleep apnea (adult) (pediatric)
CPT/HCPCS: 95800

== ENCOUNTER 2024-02-22 10:15 | Outpatient (CLI) | payer BC, SELFPAY ==
[2024-03-01 13:11] VITALS: BMI 36.1
--- NOTE | 2024-03-01 13:11 | WPDSLEEPSTUD ---
Sleep Study Date of Study: 02/22/24 Ordering Provider: Maddie Linares DO Interpreting Physician: Maddie Linares DO Sleep Study Type: BiPAP Titration Height: 1.65 m Weight: 98.43 kg Body Mass Index: 36.1 Neck Circumference (inches): 18 [place]ebolla: 9 Reason for Sleep Study AHI of 140 on HSAT Sleep History The patient is a 49-year-old female with asthma, chronic headaches, irritable bowel syndrome, hyperlipidemia, pulmonary nodules and history of tobacco use that had a sleep study ordered by her primary care for evaluation of sleep apnea. The patient frequently awakens at night with heartburn, belching or cough. She constantly snores loudly enough that others complain. She constantly has trouble sleeping when she has a cold. She occasionally wakes up gasping for air throughout the night. She constantly has breathing problems at night observed by herself or others. She denies sweating excessively at night. She rarely has heart palpitations or irregular heartbeats during the night. She rarely falls asleep during the day and never while driving. She denies sleep paralysis and cataplexy. She rarely has trouble at school or work due to sleepiness. He rarely experiences vivid dreamlike scenes upon awakening or falling asleep. She denies feeling afraid of going to sleep. She occasionally has nightmares. She occasionally remembers her dreams. She constantly has thoughts racing through her mind. She constantly feels sad or depressed. She frequently has anxiety. She frequently has muscular tension. She frequently notices parts of her body jerk. She rarely kicks during the night. She frequently has crawling and aching feelings in her legs and occasionally has leg pain during the night. She denies grinding her teeth during sleep and denies awakening with morning jaw pain. She is constantly bothered by pain during the day but denies being awakened by pain during the night. She constantly wakes up feeling stiff in the morning. She constantly wakes up with sore or achy muscles. She constantly wakes up with pain in the neck, spine and other joints. She goes to bed between 11:00 p.m. to 12:00 a.m. on weekdays and between 1-2 a.m. on the weekends. It takes her greater than 3 hours to fall asleep. She wakes up 3 times throughout the night for unknown reasons and is able to fall back asleep within 10 minutes. She wakes up at 7:00 a.m. on weekdays and 11:00 a.m. on the weekends. She typically gets 6 hours of sleep per night. She will stay in bed for few minutes after waking up in the morning. She currently lives with her and 2 children. She will consume caffeinated beverages within 2 hours of bedtime. She denies engaging in physical exercise before bedtime. She will watch television before falling asleep. She denies taking naps in afternoon or the evening. She consumes a 12 pack of caffeinated beverage daily. She quit smoking 18 months ago. She denies alcohol and recreational drug use. [facility]LY [facility] Past Medical History Medical History Allergic asthma Chronic headaches IBS (irritable bowel syndrome) Mixed hyperlipidemia Tobacco dependence due to cigarettes Quit 1 year ago. Surgical History Surgical History H/O exploratory laparotomy History of tubal ligation Family History Family History Father Diabetes mellitus Family history of cardiovascular disease Family history of malignant neoplasm of brain, Onset Age: 62 Depression Heart disease Hypertension Mother Diabetes mellitus Hypertension Patient's mother is in good health Family history of cardiovascular disease Sibling Patient's sister is in good health Patient's brother is in good health Grandparent Depression Cancer Alcoholism Social History Social History (Re
== END 2024-02-23 07:10 | disposition home or self-care (01) ==
LOC: ANHCSM 10:15
PROVIDERS: PCP Clinical Nurse Specialist; Visit Provider Family Medicine
DX: G47.33 Obstructive sleep apnea (adult) (pediatric) (principal)
CPT/HCPCS: 95811

== ENCOUNTER 2024-05-09 14:05 | Outpatient (CLI) | payer OTHER, SELFPAY ==
--- NOTE | ~2024-05-09 | CT_ITS ---
EXAMINATION: CT abdomen pelvis wo/w con DATE: 05/09/2024 15:31 INDICATION: Adrenal mass. Lung nodule. TECHNIQUE: Computed tomography (CT) of the abdomen and pelvis was performed without and with 100 mL O mnipaque-350 intravenous contrast utilizing a standard adrenal protocol. Automated exposure control a nd iterative reconstruction technique were employed. The dose-length product was 3096.79 mGy-cm. COMPARISON: None FINDINGS: 2 mm nodule at the left lower lobe. Heart size is normal. No pericardial or pleural effusion. Diffuse hepatic steatosis. Gallbladder, spleen, pancreas, bilateral kidneys and right adrenal gland are norm al. There are couple small nodules in the left adrenal gland the larger and more caudal measuring 1.3 cm with baseline attenuation of 1 a few and with 71% absolute and relative washout, all findings consist ent with adenoma. The smaller and more cephalad nodule measuring 1.2 cm demonstrate the baseline atte nuation of 17 with absolute washout of 67% and relative washout of 51% also consistent with adenoma. There are few scattered colonic diverticula without adjacent from trace stranding to suggest divertic ulitis. Small bowel and appendix are normal. Bladder, anteverted uterus and bilateral adnexa are unre markable. No free intraperitoneal gas or fluid. No pathologically enlarged abdominal or pelvic lympha denopathy. Mild lumbar spondylosis with moderate to severe lower lumbar facet osteoarthritis. IMPRESSION: 1. A couple small left adrenal adenomas with diagnostic washout on postcontrast imaging and the large also with diagnostic low-attenuation. Reviewed, dictated and finalized at location A.
--- NOTE | ~2024-05-09 | CT_ITS ---
EXAMINATION: CT diagnostic chest w con DATE: 05/09/2024 15:30 INDICATION: Follow-up pulmonary nodules TECHNIQUE: Computed tomography (CT) of the chest was performed with 100 cc Omnipaque 350 intravenous contrast. The dose-length product was 1403.16 mGy-cm. Automated exposure control and iterative recons truction technique were employed. COMPARISON: CT dated 10/06/2022 FINDINGS: No thoracic lymphadenopathy. No significant pleural or pericardial effusion. There is fatty infiltration of the liver. No significant vascular abnormality. There is mild emphysema. No endobron chial lesions. There are calcified granulomas in the right upper lobe. There is left lower lobe atele ctasis/scarring. Decrease number of noncalcified pulmonary nodules in the upper lobes with residual n odules measuring 2 mm or less, likely postinfectious/inflammatory. Small low-density lesion in the le ft thyroid lobe, likely benign. IMPRESSION: 1. Decreased number of pulmonary nodules with residual nodules measuring 2 mm or less predominantly i n the upper lobes, likely benign. Reviewed, dictated and finalized at location B. IMPRESSION: 1. Decreased number of pulmonary nodules with residual nodules measuring 2 mm o r less predominantly in the upper lobes, likely benign.
== END 2024-05-09 14:06 ==
PROVIDERS: PCP Clinical Nurse Specialist; Visit Provider Clinical Nurse Specialist
DX: E27.8 Other specified disorders of adrenal gland (principal); R91.8 Other nonspecific abnormal finding of lung field; D35.02 Benign neoplasm of left adrenal gland
CPT/HCPCS: 71260; 74178; Q9967

== ENCOUNTER 2024-12-19 17:58 | Emergency (ER) | payer OTHER, SELFPAY ==
[2024-12-19 18:02] VITALS: BP 133/57; PULSE 97; RESP 20; TEMP 36.7; O2SAT 99
--- NOTE | 2024-12-19 18:06 | ED.URI ---
HPI - URI/Sore Throat General Chief Complaint: Upper Respiratory Infection Stated Complaint: Sinus /cough Time Seen by Provider: 12/19/24 18:06 Source: patient and RN notes reviewed Mode of arrival: ambulatory Limitations: no limitations History of Present Illness HPI Narrative: 49-year-old female with history of COPD presented for complaint of cough and nasal congestion and drainage onset 4 days. Patient states she thinks she had influenza. Body aches are improving. She is requesting a note to return to work as well as a Z-Obed. She denies shortness of breath, wheezing nausea, diarrhea or lethargy.Taking Dayquil. Needs inhaler refill. MD elicited complaint: cough Related Data Home Medications ?Medication ?Instructions ?Recorded ?Confirmed ?Last Taken ?Type aspirin 81 mg tablet,delayed 81 mg PO DAILY 03/27/21 04/14/24 Unknown History release (Adult Aspirin Regimen) Allergies Allergy/AdvReac Type Severity Reaction Status Date / Time prednisone Allergy Intermediate vomit Verified 04/14/24 10:48 aspirin Allergy Unknown abdominal Verified 04/14/24 10:48 pain morphine Allergy Unknown Anaphylactic Verified 04/14/24 10:48 Shock doxycycline Allergy Swelling Verified 04/14/24 10:48 of the Eye Review of Systems Review of Systems: per HPI [facility] Past Medical History Medical History Allergic asthma Chronic headaches IBS (irritable bowel syndrome) Mixed hyperlipidemia Tobacco dependence due to cigarettes Quit 1 year ago. Surgical History Surgical History H/O exploratory laparotomy History of tubal ligation Family History Family History Father Diabetes mellitus Family history of cardiovascular disease Family history of malignant neoplasm of brain, Onset Age: 62 Depression Heart disease Hypertension Mother Diabetes mellitus Hypertension Patient's mother is in good health Family history of cardiovascular disease Sibling Patient's sister is in good health Patient's brother is in good health Grandparent Depression Cancer Alcoholism Social History Social History Social History: Caffeine- Smoking packs per day: 0.5 Smoking cigarettes per day: 10.0 Smoking status: Former smoker Tobacco type: cigarettes Second hand tobacco smoke exposure: Yes Smoking end date: 08/26/22 Alcohol intake: never Substance use: never Substance use type: does not use Lack of Transportation: No Lack of Food: Sometimes True Current Housing: I Have Housing Concerned About Future Housing: No Difficulty Paying Gas/Electric Bills: No Difficulty Paying for Meds: No Currently Unemployed: No Education: Associate Degree Difficulty w/ Childcare or Family Care: YES Living arrangements: with family Occupation/Education: occupation Gender identity (if verbalized by the patient): Female Exam Narrative: GENERAL: mildly Ill-appearing, nontoxic no acute distress. EYES: PERRLA, conjunctivae clear ENT: Mucous membranes moist. TM pearly vo with dull light reflex bilaterally; no tragal tenderness. No tripod positioning, muffled voice, soft palate or pharyngeal wall bulging NECK: Supple. No lymphadenopathy CHEST: Clear to auscultation, breath sounds equal. No respiratory distress, speaks in full sentences. HEART: Regular rate and rhythm. SKIN: Warm, dry, no rash. NEURO: Alert and oriented x3. PSYCH: Normal mood and affect Course Course Emergency Course: Patient is aware of diagnosis, understands and agrees to treatment plan. Anticipatory guidance given. Patient agrees to follow-up as directed and is aware of reasons to seek care at the emergency department. Portions of this record may have been created with voice recognition software Level of Care: Express Care Visit Vital Signs Vital signs: Vital Signs Temperature 98.1 F 12/19/24 18:02 Pulse Rate 97 12/19/24 18:02 Respiratory Rate 20 12/19/24 18:02 Blood Pressure 133/57 L 12/19/24 18:02 Pulse Oximetry 99 12/19/24 18:02 Oxygen Delivery Room Air 12/19/24 18:02 Temperature 98.1 F 12/19/24 18:02 Pulse Rate 97 12/19/24 18:02 Respiratory Rate 20 12/19/24 18:02 Blood Pressure 133/57 L 12/19/24 18:02 Pulse Oximetry 99 12/19/24 18:02 Oxygen Delivery Room Air 12/19/24 18:02 reviewed MDM - URI/Sore Throat MDM Narrative Medical decision making narrative: Discussed physical exam findings, c/w bronchitis. patient understands she likely had influenza. Declined testing. States she needs note to return to work. Pt will only start abx if sx worsen. Advised supportive measures and signs/symptoms to go to the ER. Pt is appropriate for outpt treatment and f/u. Differential Diagnosis Differential diagnosis: Likely upper respiratory infection, sinusitis, viral infection, bronchitis and influenza Discharge Plan Discharge Clinical Impression: Bronchitis Patient Disposition: Home, Self-Care Condition: Stable Instructions: Antibiotic Form, Acute Bronchitis (ED) Additional Instructions: Your symptoms are most likely caused by influenza You should avoid crowds until you are fever free for 24 hours without the use of fever reducing medications, or the symptoms are improved Rest. Drink plenty of fluids. Tylenol 1000mg every 8 hours as needed for pain/fever Flonase spray and Zyrtec (or Claritin/Sherley) for sinus pressure/congestion over the counter Cough syrup may cause drowsiness; avoid driving or take it at night time. If no improvement by Thursday you can start the antibiotic (azithromycin) Follow up with your primary care provider as needed Go to the ER for worsening symptoms or concerns Patient Language: Nepali Prescriptions: New benzonatate 200 mg capsule 200 mg PO TID PRN (Reason: cough) Qty: 20 0RF prednisone 20 mg tablet 40 mg PO DAILY 4 Days Qty: 8 0RF albuterol sulfate 90 mcg/actuation HFA aerosol inhaler 2 inh inhalation QID PRN (Reason: shortness of breath or wheezing) Qty: 8.5 0RF azithromycin [Zithromax Z-Obed] 250 mg tablet See Rx Instructions .ROUTE .COMPLEX Qty: 6 0RF Rx Instructions: For 250 mg dose pack: take 500 mg today (day 1), then 250 mg for 4 days (days 2-5) No Action aspirin [Adult Aspirin Regimen] 81 mg tablet,delayed release (DR/EC) 81 mg PO DAILY triamcinolone acetonide 0.1 % cream 1 applic topical TID Qty: 30 0RF sertraline 100 mg tablet See Rx Instructions .ROUTE .COMPLEX Qty: 90 3RF Dose Instruction: TAKE 1 TABLET BY MOUTH EVERY DAY Rx Instructions: TAKE 1 TABLET BY MOUTH EVERY DAY buspirone 10 mg tablet 10 mg PO BID PRN (Reason: anxiety) Qty: 180 1RF albuterol sulfate 2.5 mg/0.5 mL solution for nebulization 5 mg inhalation Q6H PRN (Reason: bronchospasm) Qty: 30 2RF (DME) BPAP Equipment See Rx Instructions .Route .MEDSUPPLY Qty: 1 0RF Rx Instructions: Rx:Resmed AirSense 11 BPAP 23/19 cm H2O, size medium Resmed F30 full face mask, BPAP filters/tubing and heated humidity Dx: G47.33 DME: [facility] Length of Need: 99+ months *Please link me to patient's BPAP machine through [facility]* sertraline 50 mg tablet 50 mg PO DAILY Qty: 90 0RF Rx Instructions: To be taken with the 100mg tablet-NEEDS APPOINTMENT FOR FURTHER REFILLS trazodone 50 mg tablet 50 mg PO QHS Qty: 90 0RF albuterol sulfate 90 mcg/actuation HFA aerosol inhaler 1 puff inhalation Q4H PRN (Reason: shortness of breath or wheezing) Qty: 8.5 2RF atorvastatin 10 mg tablet See Rx Instructions .ROUTE .COMPLEX Qty: 90 1RF Dose Instruction: TAKE 1 TABLET BY MOUTH EVERY DAY Rx Instructions: TAKE 1 TABLET BY MOUTH EVERY DAY Follow-up/Referrals: Hortensia Mulligan, [facility] [Primary Care Provider] - Stand Alone Forms: Work/School Release IP
== END 2024-12-19 18:32 | disposition home or self-care (01) ==
PROVIDERS: Emergency Provider Nurse Practitioner Family; PCP Clinical Nurse Specialist
DX: J40 Bronchitis, not specified as acute or chronic (principal); J44.9 Chronic obstructive pulmonary disease, unspecified; E78.2 Mixed hyperlipidemia; Z87.891 Personal history of nicotine dependence
CPT/HCPCS: 99213; G0463

== ENCOUNTER 2025-02-14 12:34 | Outpatient (CLI) | payer OTHER, SELFPAY ==
--- OUTSIDE RECORDS SUMMARY | 2025-02-14 13:34 | XMS_ITS | Clinical Summary ---
Author Organization [facility] Address [address] [place] [address] Care Team Providers Care Media Marketing Coordinator Name Role Phone Unavailable Primary Care Provider Unavailabl e Source Comments [facility],non-owned Affiliates and Associated Physician Practices is amultiple site organization consisting of ambulatory clinics and hospital sitesin [place], [place], [place] and [place]. This disclosure is being madepursuant to the Care Everywhere program and may not contain all information available regarding this patient. Last updated 18.[facility] Allergies Active Allergy Reactions Criticality Noted Date Comments Aspirin GI Discomfort 01/01/2021 Morphine DRUG DEPARTMENT WORKER Dysfunction 01/01/2021 Medications * Be aware that medications may not be up to date on this document. Alwaysverify current medications with the patient. No known medications Social History Tobacco Use Types Packs/Day Years Used Date Smoking Tobacco: Every Day Cigarettes Smokeless Tobacco: Never Comments Unknown Sex and Gender Information Value Date Recorded Sex Assigned at Not on file Legal Sex Female 12:36 PM CDT Gender Identity Not on file Sexual Orientation Not on file Last Filed Vital Signs Vital Sign Reading Time Taken Comments Blood Pressure 124/82 01/01/2021 5:02 PM CDT Pulse 100 01/01/2021 5:02 PM CDT Temperature 36.8 C (98.3 F) 01/01/2021 5:02 PM CDT Respiratory Rate 16 01/01/2021 5:02 PM CDT Oxygen Saturation 98% 01/01/2021 5:02 PM CDT Inhaled Oxygen Concentration - - Weight 92.5 kg (204 lb) 01/01/2021 5:02 PM CDT Height 165.1 cm (5' 5 ) 01/01/2021 5:02 PM CDT Body Mass Index 33.95 01/01/2021 5:02 PM CDT Plan of Treatment Health Maintenance Due Date Last Done Comments COLOGUARD (AGES 45-75) - COL ON CA SCREENING 1973 COLON MONITORING 1973 COLONOSCOPY - COLON CA SCREENING 1973 CT COLONOGRAPHY - COLON CA SCREENING 1973 Colorectal Cancer Screening 1973 FIT - COLON CA SCREENING 1973 FLEX SIG - COLON CA SCREENING 1973 LIPID TESTING 1973 MAMMOGRAM 1973 HIV SCREENING 01/06/1988 HEPATITIS C SCREENING 01/01/1991 DTAP/TDAP/TD VACCINES (1 - Tdap) 01/06/1992 HEPATITIS B VACCINE (1 of 3 - 19+ 3-dose series) 01/06/1992 SCREENING FOR DIABETES 01/01/2021 PNEUMOCOCCAL VACCINE 50+ (1 of 1 - PCV) 2023 ZOSTER VACCINE (1 of 2) 2023 COVID-19 VACCINE (1 - 2023-2 5 season) 2024 DEPRESSION SCREENING 10/19/2024 INFLUENZA VACCINE (Season Ended) 2025 HIB VACCINE Aged Out No longer eligi ble based on patient's age to complete this topic HPV VACCINE Aged Out No longer eligi ble based on patient's age to complete this topic MENINGOCOCCAL (Group B) VACC INE SHARED DECISION-MAKING Aged Out No longer eligibl e based on patient's age to complete this topic MENINGOCOCCAL GROUPS A/C/Y/W VACCINE Aged Out No longer eligible b ased on patient's age to complete this topic Insurance [employer]
--- OUTSIDE RECORDS SUMMARY | 2025-02-14 13:34 | XMS_ITS | Clinical Summary ---
Author Organization [facility] Address [address] [place] [address] Care Team Providers Care Logging Engineer Name Role Phone Bk Penn DO Primary Care Provider [phone] Allergies Active Allergy Reactions Criticality Noted Date Comments Aspirin GI Upset,Unknown 05/11/2012 Morphine Hallucinations 01/01/2021 Medications albuterol sulfate HFA 108 (90 Base) MCG/ACT inhaler Inhale 1 puff into the lungs every 4 (four) hours as needed. 2 Active albuterol (PROVENTIL) (2.5 MG/3ML) 0.083% nebulizer solution Take 3 mLs (2.5 mg total) by nebulization every 6 (six) hours as needed. 2 Active atorvastatin (LIPITOR) 10 MG tablet Take 1 tablet (10 mg total) by mouth daily. 3 Active benzonatate (TESSALON) 100 MG capsule Take 1 capsule (100 mg total) by mouth 3 (three) times daily as needed. 3 Active busPIRone (BUSPAR) 10 MG tablet Take 1 tablet (10 mg total) by mouth 2 (two) times daily as needed. 3 Active olopatadine (PATADAY) 0.2 % Solution Place 1 drop into both eyes daily as needed. 2 Active sertraline (ZOLOFT) 100 MG tablet Take 1 tablet (100 mg total) by mouth daily. Active Social History Tobacco Use Types Packs/Day Years Used Date Smoking Tobacco: Former Cigarettes Q uit: 08/11/2022 Smokeless Tobacco: Never Tobacco Cessation:Counseling Given: Not Answered Alcohol Use Standard Drinks/Week Comments Never 0 (1 standard drink = 0.6 oz pur e alcohol) Comments Unknown Sex and Gender Information Value Date Recorded Sex Assigned at Not on file Legal Sex Female 7:22 PM CDT Gender Identity Not on file Sexual Orientation Not on file Last Filed Vital Signs Vital Sign Reading Time Taken Comments Blood Pressure 118/87 08/11/2023 10:44 PM CDT Pulse 99 08/11/2023 9:52 PM CDT Temperature 36.1 C (97 F) 08/11/2023 10:44 PM CDT Respiratory Rate 16 08/11/2023 10:44 PM CDT Oxygen Saturation 95% 08/11/2023 10:44 PM CDT Inhaled Oxygen Concentration - - Weight 81.9 kg (180 lb 8.9 oz) 08/11/2023 9:52 P M CDT Height 165.1 cm (5' 5 ) 08/11/2023 9:52 PM CDT Body Mass Index 30.05 08/11/2023 9:52 PM CDT Plan of Treatment Health Maintenance Due Date Last Done Comments Cervical Cancer Screening Pa p Smear (Age 30 to 64) Every 3 Years 1973 Colorectal Cancer Screening Colonoscopy (10 Years) 1973 Annual Physical 01/06/1976 Hepatitis C 1991 DTaP, Tdap and Td Vaccines ( 1 - Tdap) 01/06/1992 Hepatitis B Vaccines (1 of 3 - 19+ 3-dose series) 01/06/1992 Cervical Cancer Screening Pa p with HPV Testing (Age 30 to 64) Every 5 Years 2003 Cervical Cancer Screening with HPV 2003 Mammogram Screening 2013 Pneumococcal Vaccine: 50+ Ye ars (1 of 1 - PCV) 2023 Zoster Vaccines (1 of 2) 2023 COVID-19 Vaccine (2 - 2023-2 5 season) 2024 01/16/2021 Meningococcal B Vaccine Aged Out No l onger eligible based on patient's age to complete this topic Meningococcal Vaccine Aged Out No brendon marsha eligible based on patient's age to complete this topic RSV Immunizations Under 20 Months Aged Out No longer eligible based on patient's age to complete this topic [place] [address] Advance Directives Documents on File Type Date Recorded Patient Insole Rounder Expl anation Advance Directives and Living Will 09/06/2015 12:00 AM ADVANCED DIRECTIVES Care Teams Logging Engineer Relationship Specialty Start Date End Date Bk Penn DO [address] [facility] [address] [place] [address] PCP - General INTERNAL MEDICINE 08/11/23
--- OUTSIDE RECORDS SUMMARY | 2025-02-14 13:34 | XMS_ITS | Clinical Summary ---
Author Organization [facility] [address] Address [address] [place] [address] Care Team Providers Care Digital Camera Technician Name Role Phone Hortensia Mulligan NP Primary Care Provider [phone] Social History Tobacco Use Types Packs/Day Years Used Date Smoking Tobacco: Never Assessed Personal Safety Answer Date Recorded Getting School Help Needed Not on file 04/15 Comments Unknown Sex and Gender Information Value Date Recorded Sex Assigned at Not on file Legal Sex Female 8:27 AM CDT Gender Identity Not on file Sexual Orientation Not on file Plan of Treatment Health Maintenance Due Date Last Done Comments Breast Cancer Screening-Mammogram 1973 Cervical Cancer Screening 1973 Colon Cancer Screening-Colonoscopy 1973 Depression Screening 1973 Hepatitis C Screening 1973 DTaP/Tdap/Td Vaccine (1 - Tdap) 01/06/1984 Hepatitis B Screening 1991 Regular Well Visit/Exam 18-64 1991 Zoster Vaccine (1 of 2) 2023 Covid-19 Vaccine (2 - 2023-2 5 season) 2024 01/16/2021 Influenza Vaccine (Season Ended) 2025 Pneumococcal vaccine <65 Aged Out No longer eligible based on patient's age to complete this topic Insurance [employer] OOS Care Teams Digital Camera Technician Relationship Specialty Start Date End Date Hortensia Mulligan NP [address] [facility] [address] [address] PCP - General Cardiovascular Disease 04/15/24
--- OUTSIDE RECORDS SUMMARY | 2025-02-14 13:34 | XMS_ITS | Referral Summary ---
Author Organization [facility] [address] Address [address] [place] [address] Care Team Providers Care Director Strategic Planning Name Role Phone Hortensia Mulligan NP Primary Care Provider + [phone] Social History Tobacco Use Types Packs/Day Years Used Date Smoking Tobacco: Never Assessed Personal Safety Answer Date Recorded Getting School Help Needed Not on file 04/15 Comments Unknown Sex and Gender Information Value Date Recorded Sex Assigned at Not on file Legal Sex Female 8:27 AM CDT Gender Identity Not on file Sexual Orientation Not on file Plan of Treatment Not on file Insurance [employer] OOS Care Teams Director Strategic Planning Relationship Specialty Start Date End Date Hortensia Mulligan NP [facility] [place] [address] [place] [address] PCP - General Cardiovascular Disease 04/15/24
[2025-02-14 20:27] LABS: Basophils Percent Auto 0.6 % (0.2-1.2); Eosinophils Absolute Auto 0.2 K/mm3 (0-0.3); Eosinophils Percent Auto 2.2 % (0-4.4); Hematocrit 41.5 % (37.0-47.0); Immature Granulocyte Absolute 0.02 K/mm3 (0.00-0.031); Immature Granulocyte Percent A 0.3 % (0-0.5); Lymphocytes Percent Auto 30.3 % (18.3-44.2); Mean Corpuscular HGB Conc 31.3 g/dl (32-36); Mean Corpuscular Hemoglobin 29.8 pg (26-34); Mean Corpuscular Volume 95.2 fl (80-100); Mean Platelet Volume 9.7 fl (7.4-10.4); Monocytes Absolute Auto 0.5 K/mm3 (0.1-0.6); Monocytes Percent Auto 6.8 % (2.6-8.5); Neutrophils Absolute Auto 4.3 K/mm3 (1.3-6.7); Neutrophils Percent Auto 59.8 % (45.5-73.1); Platelet Count Result 262 k/mm3 (150-375); Red Blood Count 4.36 M/mm3 (4.2-5.4); Red Cell Distribution Width 13.9 % (11.5-14.5); White Blood Count 7.3 K/mm3 (4.5-10.0)
[2025-02-14 20:50] LABS: Alanine Aminotransferase 41 U/L (6-35); Albumin Level 4.4 g/dL (3.5-5.1); Alkaline Phosphatase 110 U/L (38-126); Anion Gap 11 mmol/L (4-12); Aspartate Amino Transferase 31 U/L (14-36); Bilirubin,Total 0.2 mg/dL (0.2-1.3); Blood Urea Nitrogen 14 mg/dL (7-17); Calcium 9.3 mg/dL (8.4-10.2); Carbon Dioxide 29 mmol/L (22-30); Chloride 101 mmol/L (98-107); Cholesterol 159 mg/dL (0-200); Estimated Glomerular Filt Rate > 60; Glucose 92 mg/dL (65-110); HDL Direct 39 mg/dL; Potassium 4.3 mmol/L (3.4-5.0); Sodium 141 mmol/L (137-145); Triglycerides 220 mg/dL (<150)
[2025-02-14 20:57] LABS: Hemoglobin A1C 5.7 % (<5.7)
[2025-02-14 21:01] LABS: LDL Cholesterol Direct 77 mg/dL
[2025-02-14 21:05] LABS: Vitamin D 25 Hydroxy 16.1 ng/mL
[2025-02-17 11:38] LABS: NIL 0.06 IU/mL; Quantiferon TB Plus, 1T NEGATIVE (NEGATIVE); TB1-NIL <0.00 IU/mL; TB2-NIL 0.01 IU/mL
== END 2025-02-14 12:35 | disposition home or self-care (01) ==
LOC: ANHGOSHLAB 12:35
PROVIDERS: PCP Clinical Nurse Specialist; Visit Provider Clinical Nurse Specialist
DX: D35.00 Benign neoplasm of unspecified adrenal gland (principal); J43.9 Emphysema, unspecified; G47.33 Obstructive sleep apnea (adult) (pediatric); R53.83 Other fatigue; E55.9 Vitamin D deficiency, unspecified; R73.9 Hyperglycemia, unspecified; E78.2 Mixed hyperlipidemia; F41.9 Anxiety disorder, unspecified; Z11.1 Encounter for screening for respiratory tuberculosis
CPT/HCPCS: 36415; 80053; 80061; 82306; 83036; 84443; 85025; 86480

== ENCOUNTER 2025-03-07 18:27 | Emergency (ER) | payer OTHER, SELFPAY ==
--- OUTSIDE RECORDS SUMMARY | 2025-03-07 18:29 | XMS_ITS | Clinical Summary ---
Author Organization [facility] [address] Address [address] [place] [address] Care Team Providers Care Technologist Development Name Role Phone Hortensia Mulligan NP Primary Care Provider [phone] Social History Tobacco Use Types Packs/Day Years [...] patient's age to complete this topic Insurance [employer] OOS Care Teams Technologist Development Relationship Specialty Start Date End Date Hortensia Mulligan NP [address] [facility] [address] [address] PCP - General Cardiovascular Disease 04/15/24
--- OUTSIDE RECORDS SUMMARY | 2025-03-07 18:29 | XMS_ITS | Clinical Summary ---
Author Organization [facility] [employer] Address [address] [facility] [place] [address] Care Team Providers Care Analog Ic Design Engineer Name Role Phone Unavailable Primary Care Provider Unavailabl e Source Comments [facility],non-owned Affiliates and Associated Physician Practices is amultiple site organization consisting of ambulatory clinics and hospital sitesin [place], [place], [place] and [place]. This disclosure is being madepursuant to the Care Everywhere program and may not contain all information available regarding this patient. Last updated 18.[facility] [employer] Allergies Active Allergy Reactions Criticality Noted Date Comments Aspirin GI Discomfort 01/01/2021 Morphine MARINE PAINTER Dysfunction 01/01/2021 Medications * Be aware that [...]
--- OUTSIDE RECORDS SUMMARY | 2025-03-07 18:29 | XMS_ITS | Referral Summary ---
Author Organization [facility] [address] Address [address] [place] [address] Care Team Providers Care Casting Room Helper Name Role Phone Hortensia Mulligan NP Primary Care Provider + [phone] Social History Tobacco Use Types Packs/Day Years [...] Plan of Treatment Not on file Insurance [employer] OOS Care Teams Casting Room Helper Relationship Specialty Start Date End Date Hortensia Mulligan NP [facility] [place] [address] [place] [address] PCP - General Cardiovascular Disease 04/15/24
[2025-03-07 18:31] VITALS: BP 155/64; PULSE 103; RESP 20; TEMP 36.2; O2SAT 98
--- NOTE | 2025-03-07 19:13 | ED_ITS ---
HPI - General Adult General Chief complaint: Upper Respiratory Infection Stated complaint: shallow breathing Source: patient Mode of arrival: ambulatory Limitations: no limitations History of Present Illness HPI narrative: Patient presents for evaluation of respiratory symptoms. She indicates she has a history of asthma and sensitivity to mold. Last she was exposed to mold. She developed a cough thereafter. The cough is improving. She has mild chest tightness. She also has some dyspnea on exertion. Denies any fever, chills, sore throat, otalgia, nausea, vomiting, diarrhea. She quit smoking. She has an albuterol inhaler at home. She states the last time this happened she was given prednisone 40 mg daily x4 days and tolerated the medication well. She does last prednisone as an allergy in her chart intentionally as she states that a doctor ?overdosed (her) on prednisone citing a dose of 100mg TID. She states she is able to tolerate the medication at lower doses. Related Data Home Medications ?Medication ?Instructions ?Recorded ?Confirmed ?Last Taken ?Type aspirin 81 mg tablet,delayed 81 mg PO DAILY 03/27/21 02/14/25 Unknown History release (Adult Aspirin Regimen) Allergies Allergy/AdvReac Type Severity Reaction Status Date / Time prednisone Allergy Intermediate vomit Verified 02/14/25 11:27 aspirin Allergy Unknown abdominal Verified 02/14/25 11:27 pain morphine Allergy Unknown Anaphylactic Verified 02/14/25 11:27 Shock doxycycline Allergy Swelling Verified 02/14/25 11:27 of the Eye Review of Systems Review of Systems: CONSTITUTIONAL: Denies fever, chills, or sweats. EYES: Denies visual changes, redness, or discharge. ENT: Denies rhinorrhea, congestion, sore throat, or otalgia. CARDIOVASCULAR: Denies chest pain, palpitations, or edema. RESPIRATORY: Reports dyspnea on exertion mild chest tightness. Reports cough which is improving. GASTROINTESTINAL: Denies abdominal pain, nausea, vomiting, or diarrhea. GENITOURINARY: Denies dysuria or hematuria. SKIN: Denies rash or itching. MUSCULOSKELETAL: Denies back pain, joint pain, or myalgia. NEUROLOGIC: Denies headache, numbness, dizziness, or weakness. PSYCHIATRIC: Denies anxiety or depression. [facility] Past Medical History Medical History Hospital discharge follow-up Leg cramping Fatigue Hypersomnia Bronchitis Right wrist pain Other tics of organic origin IBS (irritable bowel syndrome) Mixed hyperlipidemia Chronic headaches Allergic asthma Tobacco dependence due to cigarettes Quit 1 year ago. Surgical History Surgical History H/O exploratory laparotomy History of tubal ligation Family History Family History Father Diabetes mellitus Family history of cardiovascular disease Family history of malignant neoplasm of brain, Onset Age: 62 Depression Heart disease Hypertension Mother Diabetes mellitus Hypertension Patient's mother is in good health Family history of cardiovascular disease Sibling Patient's sister is in good health Patient's brother is in good health Grandparent Depression Cancer Alcoholism Social History Social History Social History: Caffeine- Smoking packs per day: 0.5 Smoking cigarettes per day: 10.0 Smoking status: Former smoker Tobacco type: cigarettes Second hand tobacco smoke exposure: Yes Smoking end date: 08/26/22 Alcohol intake: never Substance use: never Substance use type: does not use Lack of Transportation: No Lack of Food: Sometimes True Current Housing: I Have Housing Concerned About Future Housing: No Difficulty Paying Gas/Electric Bills: No Difficulty Paying for Meds: No Currently Unemployed: No Education: Associate Degree Difficulty w/ Childcare or Family Care: YES Living arrangements: with family Occupation/Education: occupation Gender identity (if verbalized by the patient): Female Exam Narrative: GENERAL: Well-appearing, well-nourished, and in no acute distress. HEAD: Normocephalic, atraumatic. EYES: PERRLA and EOMI. ENT: Nares clear, no rhinorrhea or epistaxis. Mucous membranes moist. Oropharynx without tonsillar hypertrophy exudate or other lesions. Bilateral TMs pearly vo nonbulging NECK: Supple. No adenopathy or masses. No carotid bruits or JVD CHEST: Clear to auscultation. No respiratory distress. No wheezes rales or rhonchi HEART: Regular rate and rhythm. No murmur heard. Normal peripheral pulses. ABDOMEN: Soft, nontender, nondistended, normal active bowel sounds. EXTREMITIES: Normal range of motion. No edema. SKIN: Warm, dry, no rash. NEURO: No focal deficits. Alert and oriented x3. PSYCH: Normal mood and affect. Course Course Emergency Course: This is a 50-year-old female who presented for evaluation of respiratory symptoms. Did offer to check a chest x-ray. She declined. She would simply like a prescription for prednisone and a note to excuse her from work today and tomorrow. She states she is able to tolerate prednisone despite listed allergy in her chart. Please see HPI for additional details. She is advised to follow- up with her primary care provider go to the ER for worsening symptoms. Patient in agreement with plan of care. Level of Care: Express Care Visit Vital Signs Vital signs: Vital Signs Temperature 36.2 C L 03/07/25 18:31 Pulse Rate 103 H 03/07/25 18:31 Respiratory Rate 03/07/25 18:31 Blood Pressure 155/64 H 03/07/25 18:31 Pulse Oximetry 98 03/07/25 18:31 Oxygen Delivery Room Air 03/07/25 18:31 Temperature 36.2 C L 03/07/25 18:31 Pulse Rate 103 H 03/07/25 18:31 Respiratory Rate 03/07/25 18:31 Blood Pressure 155/64 H 03/07/25 18:31 Pulse Oximetry 98 03/07/25 18:31 Oxygen Delivery Room Air 03/07/25 18:31 Medical Decision Making Vital Signs Vital Signs: Vital Signs Temperature 36.2 C L 03/07/25 18:31 Pulse Rate 103 H 03/07/25 18:31 Respiratory Rate 03/07/25 18:31 Blood Pressure 155/64 H 03/07/25 18:31 Pulse Oximetry 98 03/07/25 18:31 Oxygen Delivery Room Air 03/07/25 18:31 Temperature 36.2 C L 03/07/25 18:31 Pulse Rate 103 H 03/07/25 18:31 Respiratory Rate 03/07/25 18:31 Blood Pressure 155/64 H 03/07/25 18:31 Pulse Oximetry 98 03/07/25 18:31 Oxygen Delivery Room Air 03/07/25 18:31 Discharge Plan Discharge Clinical Impression: URI (upper respiratory infection) Patient Disposition: Home Condition: Stable Instructions: Antibiotic Form, Upper Respiratory Infection (ED) Patient Language: Upper Sorbian Prescriptions: New prednisone 20 mg tablet 40 mg PO DAILY 4 Days Qty: 8 0RF No Action albuterol sulfate 90 mcg/actuation HFA aerosol inhaler 2 inh inhalation QID PRN (Reason: shortness of breath or wheezing) Qty: 8.5 0RF aspirin [Adult Aspirin Regimen] 81 mg tablet,delayed release (DR/EC) 81 mg PO DAILY cholecalciferol (vitamin D3) 1,250 mcg (50,000 unit) tablet 1,250 mcg PO WEEKLY Qty: 8 1RF triamcinolone acetonide 0.1 % cream 1 applic topical TID Qty: 30 0RF (DME) BPAP Equipment See Rx Instructions .Route .MEDSUPPLY Qty: 1 0RF Rx Instructions: Rx:Resmed AirSense 11 BPAP 23/19 cm H2O, size medium Resmed F30 full face mask, BPAP filters/tubing and heated humidity Dx: G47.33 DME: [facility] Length of Need: 99+ months *Please link me to patient's BPAP machine through [facility]* trazodone 50 mg tablet 50 mg PO QHS Qty: 90 0RF atorvastatin 10 mg tablet See Rx Instructions .ROUTE .COMPLEX Qty: 90 1RF Dose Instruction: TAKE 1 TABLET BY MOUTH EVERY DAY Rx Instructions: TAKE 1 TABLET BY MOUTH EVERY DAY sertraline 50 mg tablet 50 mg PO DAILY Qty: 90 1RF Rx Instructions: To be taken with the 100mg tablet sertraline 100 mg tablet See Rx Instructions .ROUTE .COMPLEX Qty: 90 1RF Dose Instruction: TAKE 1 TABLET BY MOUTH EVERY DAY Rx Instructions: TAKE 1 TABLET BY MOUTH EVERY DAY Zepbound 2.5 mg/0.5 mL pen injector 2.5 mg subcut WEEKLY Qty: 2 0RF Rx Instructions: for 4 weeks Follow-up/Referrals: Bk Penn DO [Primary Care Provider] - Stand Alone Forms: Work/School Release IP Time of Disposition: 19:08
== END 2025-03-07 19:12 | disposition home or self-care (01) ==
PROVIDERS: Emergency Provider Nurse Practitioner; PCP Internal Medicine
DX: J06.9 Acute upper respiratory infection, unspecified (principal); J45.909 Unspecified asthma, uncomplicated; Z79.82 Long term (current) use of aspirin; E78.2 Mixed hyperlipidemia; Z87.891 Personal history of nicotine dependence
CPT/HCPCS: 99213; G0463

== ENCOUNTER 2025-04-19 07:57 | Outpatient (CLI) | payer OTHER, SELFPAY ==
--- OUTSIDE RECORDS SUMMARY | 2025-04-19 08:02 | XMS_ITS | Clinical Summary ---
Author Organization [facility] Address [address] [place] [address] Care Team Providers Care Co Teacher Name Role Phone Bk Penn DO Primary Care Provider [phone] Allergies Active Allergy Reactions Criticality Noted Date [...] P M CDT Height 165.1 cm (5' 5) 08/11/2023 9:52 PM CDT Body Mass Index [...] patient's age to complete this topic [place] [address] [place] [address] Advance Directives Documents on File Type Date Recorded Patient Dermatology Nurse Expl anation Advance Directives and Living Will 09/06/2015 12:00 AM ADVANCED DIRECTIVES Care Teams Co Teacher Relationship Specialty Start Date End Date Bk Penn DO [address] [facility] [address] [place] [address] PCP - General INTERNAL MEDICINE 08/11/23
--- OUTSIDE RECORDS SUMMARY | 2025-04-19 08:02 | XMS_ITS | Clinical Summary ---
Author Organization [facility] [employer] Address [address] [facility] [place] [address] Care Team Providers Care Structural Steel Fitter Name Role Phone Unavailable Primary Care Provider Unavailabl e Source Comments [facility],non-owned Affiliates and Associated Physician Practices is amultiple site organization consisting of ambulatory clinics and hospital sitesin [place], [place], [place] and [place]. This disclosure is being madepursuant to the Care Everywhere program and may not contain all information available regarding this patient. Last updated 18.[facility] [employer] Allergies Active Allergy Reactions Criticality Noted Date Comments Aspirin GI Discomfort 01/01/2021 Morphine FINISHER POLISHER Dysfunction 01/01/2021 Medications * Be aware that [...] 5:02 PM CDT Height 165.1 cm (5' 5) 01/01/2021 5:02 PM CDT Body Mass Index [...]
--- OUTSIDE RECORDS SUMMARY | 2025-04-19 08:02 | XMS_ITS | Clinical Summary ---
Author Organization [facility] [place] [address] Address [address] [place] [address] Care Team Providers Care Printed Circuit Boards Pinner Name Role Phone Hortensia Mulligan NP Primary Care Provider [phone] Social History Tobacco Use Types Packs/Day Years [...] patient's age to complete this topic Insurance [employer] OOS Care Teams Printed Circuit Boards Pinner Relationship Specialty Start Date End Date Hortensia Mulligan NP [address] [facility] [address] [address] PCP - General Cardiovascular Disease 04/15/24
--- OUTSIDE RECORDS SUMMARY | 2025-04-19 08:02 | XMS_ITS | Referral Summary ---
Author Organization [facility] [place] [facility] [place] [address] Address [address] [place] [address] Care Team Providers Care Family Sociologist Name Role Phone Hortensia Mulligan NP Primary Care Provider + [phone] Social History Tobacco Use Types Packs/Day Years [...] Plan of Treatment Not on file Insurance [place] [employer] OOS Care Teams Family Sociologist Relationship Specialty Start Date End Date Hortensia Mulligan NP [facility] [place] [address] [place] [address] PCP - General Cardiovascular Disease 04/15/24
[2025-04-19 13:00] LABS: Alanine Aminotransferase 49 U/L (6-35); Albumin Level 4.7 g/dL (3.5-5.1); Alkaline Phosphatase 98 U/L (38-126); Anion Gap 11 mmol/L (4-12); Aspartate Amino Transferase 53 U/L (14-36); Bilirubin,Total 0.3 mg/dL (0.2-1.3); Blood Urea Nitrogen 16 mg/dL (7-17); Calcium 9.9 mg/dL (8.4-10.2); Carbon Dioxide 26 mmol/L (22-30); Chloride 101 mmol/L (98-107); Estimated Glomerular Filt Rate > 60; Glucose 120 mg/dL (65-110); Potassium 4.5 mmol/L (3.4-5.0); Sodium 138 mmol/L (137-145); Total Protein 8.4 g/dL (6.3-8.2)
[2025-04-19 13:29] LABS: Free T4 Free Thyroxine. 1.34 ng/dL (0.78-2.19)
[2025-04-19 13:32] LABS: Thyroid Stimulating Hormone 0.744 uIU/mL (0.465-4.680)
[2025-04-24 18:08] LABS: Catecholamines, Total <284 pg/mL
== END 2025-04-19 07:58 | disposition home or self-care (01) ==
LOC: ANHGOSHLAB 07:59
PROVIDERS: PCP Internal Medicine; Visit Provider Internal Medicine
DX: E78.2 Mixed hyperlipidemia (principal); Z13.228 Encounter for screening for other metabolic disorders; R73.09 Other abnormal glucose; Z13.220 Encounter for screening for lipoid disorders; E55.9 Vitamin D deficiency, unspecified; R73.9 Hyperglycemia, unspecified; E27.8 Other specified disorders of adrenal gland; E66.09 Other obesity due to excess calories; Z68.36 Body mass index [BMI] 36.0-36.9, adult; E66.9 Obesity, unspecified; D35.00 Benign neoplasm of unspecified adrenal gland
CPT/HCPCS: 36415; 80053; 82088; 82384; 82533; 83498; 83835; 84244; 84439; 84443

== ENCOUNTER 2025-04-27 15:18 | Outpatient (CLI) | payer OTHER, SELFPAY ==
--- OUTSIDE RECORDS SUMMARY | 2025-04-27 15:21 | XMS_ITS | Clinical Summary ---
Author Organization [facility] [employer] Address [address] [facility] [place] [address] Care Team Providers Care Foam Cutting Supervisor Name Role Phone Unavailable Primary Care Provider Unavailabl e Source Comments [facility],non-owned Affiliates and Associated Physician Practices is amultiple site organization consisting of ambulatory clinics and hospital sitesin [place], [place], [place] and [place]. This disclosure is being madepursuant to the Care Everywhere program and may not contain all information available regarding this patient. Last updated 18.[facility] [employer] Allergies Active Allergy Reactions Criticality Noted Date Comments Aspirin GI Discomfort 01/01/2021 Morphine THEATRICAL PERFORMER Dysfunction 01/01/2021 Medications * Be aware that [...] season) 2024 DEPRESSION SCREENING 10/19/2024 INFLUENZA VACCINE (#1) 2025 HIB VACCINE Aged Out No longer [...]
--- OUTSIDE RECORDS SUMMARY | 2025-04-27 15:21 | XMS_ITS | Clinical Summary ---
Author Organization [facility] Address [address] [place] [address] Care Team Providers Care Planning Rn Name Role Phone Bk Penn DO Primary Care Provider [phone] Allergies Active Allergy Reactions Criticality Noted Date [...] patient's age to complete this topic Insurance [place] [address] Advance Directives Documents on File Type Date Recorded Patient Vest Tailor Expl anation Advance Directives and Living Will 09/06/2015 12:00 AM ADVANCED DIRECTIVES Care Teams Planning Rn Relationship Specialty Start Date End Date Bk Penn DO [address] [facility] [address] [place] [address] PCP - General INTERNAL MEDICINE 08/11/23
--- OUTSIDE RECORDS SUMMARY | 2025-04-27 15:21 | XMS_ITS | Clinical Summary ---
Author Organization [facility] [address] Address [address] [place] [address] Care Team Providers Care Children'S Literature Professor Name Role Phone Hortensia Mulligan NP Primary Care Provider [phone] Social History Tobacco Use Types Packs/Day Years [...] 2023-2 5 season) 2024 01/16/2021 Influenza Vaccine (#1) 2025 Pneumococcal vaccine <65 Aged Out No longer eligible based on patient's age to complete this topic Insurance [employer] OOS Care Teams Children'S Literature Professor Relationship Specialty Start Date End Date Hortensia Mulligan NP [address] [facility] [address] [address] PCP - General Cardiovascular Disease 04/15/24
--- OUTSIDE RECORDS SUMMARY | 2025-04-27 15:21 | XMS_ITS | Referral Summary ---
Author Organization [facility] [address] Address [address] [place] [address] Care Team Providers Care Clinical Trial Educator Name Role Phone Hortensia Mulligan NP Primary Care Provider + [phone] Social History Tobacco Use Types Packs/Day Years [...] Plan of Treatment Not on file Insurance [employer] OOS Care Teams Clinical Trial Educator Relationship Specialty Start Date End Date Hortensia Mulligan NP [facility] [place] [address] [place] [address] PCP - General Cardiovascular Disease 04/15/24
[2025-05-01 18:08] LABS: Estradiol, Sensitive 5.0 pg/mL (.)
== END 2025-04-27 15:19 | disposition home or self-care (01) ==
LOC: ANHGOSHLAB 15:19
PROVIDERS: PCP Internal Medicine; Visit Provider Obstetrics & Gynecology
DX: N95.0 Postmenopausal bleeding (principal)
CPT/HCPCS: 82670; 84144

== ENCOUNTER 2025-05-11 09:16 | Outpatient (CLI) | payer OTHER, SELFPAY ==
--- NOTE | ~2025-05-11 | NM_ITS ---
EXAMINATION: NM mimi stress w perfusion DATE: 05/11/2025 12:08 INDICATION: Other chest pain and dyspnea TECHNIQUE: Rest images were to be obtained following intravenous administration of 10.41 mCi Tc99m te trofosmin (Myoview). The patient refused to proceed with the scan due to claustrophobia and the remai nder of the study was canceled with no rest or stress imaging obtained. COMPARISON: None. FINDINGS/IMPRESSION: Study canceled following radiopharmaceutical injection but prior to imaging due to patient claustroph obia. Reviewed, dictated and finalized at location A.
--- OUTSIDE RECORDS SUMMARY | 2025-05-11 09:21 | XMS_ITS | Clinical Summary ---
Author Organization [facility] [address] Address [address] [place] [address] Care Team Providers Care Television Installer Name Role Phone Hortensia Mulligan NP Primary Care Provider [phone] Social History Tobacco Use Types Packs/Day Years [...] patient's age to complete this topic Insurance [employer] OOS Care Teams Television Installer Relationship Specialty Start Date End Date Hortensia Mulligan NP [address] [facility] [address] [address] PCP - General Cardiovascular Disease 04/15/24
--- OUTSIDE RECORDS SUMMARY | 2025-05-11 09:21 | XMS_ITS | Referral Summary ---
Author Organization [facility] [facility] [place] [address] Address [address] [place] [address] Care Team Providers Care Draftsperson Name Role Phone Hortensia Mulligan NP Primary Care Provider [phone] Social History Tobacco Use Types Packs/Day Years [...] Plan of Treatment Not on file Insurance [employer] OOS Care Teams Draftsperson Relationship Specialty Start Date End Date Hortensia Mulligan NP [facility] [place] [address] [place] [address] PCP - General Cardiovascular Disease 04/15/24
--- OUTSIDE RECORDS SUMMARY | 2025-05-11 09:21 | XMS_ITS | Clinical Summary ---
Author Organization [facility] Address [address] [place] [address] Care Team Providers Care Peripatologist Name Role Phone Bk Penn DO Primary Care Provider [phone] Allergies Active Allergy Reactions Criticality Noted Date [...] patient's age to complete this topic Insurance [place] [address] Advance Directives Documents on File Type Date Recorded Patient Dean Of Chapel Expl anation Advance Directives and Living Will 09/06/2015 12:00 AM ADVANCED DIRECTIVES Care Teams Peripatologist Relationship Specialty Start Date End Date Bk Penn DO [address] [facility] [address] [place] [address] PCP - General INTERNAL MEDICINE 08/11/23
--- OUTSIDE RECORDS SUMMARY | 2025-05-11 09:21 | XMS_ITS | Clinical Summary ---
Author Organization [facility] [employer] Address [address] [facility] [place] [address] Care Team Providers Care Engrosser Name Role Phone Unavailable Primary Care Provider Unavailabl e Source Comments [facility],non-owned Affiliates and Associated Physician Practices is amultiple site organization consisting of ambulatory clinics and hospital sitesin [place], [place], [place] and [place]. This disclosure is being madepursuant to the Care Everywhere program and may not contain all information available regarding this patient. Last updated 18.[facility] [employer] Allergies Active Allergy Reactions Criticality Noted Date Comments Aspirin GI Discomfort 01/01/2021 Morphine RETAIL SHIFT SUPERVISOR Dysfunction 01/01/2021 Medications * Be aware that [...]
== END 2025-05-11 09:17 | disposition home or self-care (01) ==
PROVIDERS: PCP Internal Medicine; Visit Provider Clinical Nurse Specialist
DX: R07.89 Other chest pain (principal); R06.09 Other forms of dyspnea
CPT/HCPCS: 78452; A9502

== ENCOUNTER 2025-05-22 01:38 | Day surgery (SDC) | payer OTHER, SELFPAY ==
[2025-05-18 10:29] VITALS: BMI 38.7
--- NOTE | 2025-05-18 10:46 | PC.NURSE ---
Report to the Outpatient Waiting Room, entrance under the green pavilion located off [facility], at time _1100_ on date _[id number]_. Planned Procedure Time: _1pm_.? Time changes happen often and if your time is changed the preop area will call you the afternoon before. - You and your visitor will be asked to self-screen and do not enter if you have any COVID symptoms. Please call surgeon if you need to reschedule. - A mask is optional within the hospital at this time. Patients may have clear liquids (water, carbonated beverages, clear teas, apple juice) until 3 hours prior to surgery with a maximum of 20 ounces. - No food from midnight until time of surgery and no smoking, or chewing tobacco (or any form of nicotine). No chewing gum, candy or mints. Take only the following medications with a SIP of water on the morning of surgery: ___None____ DO NOT STOP ANY OF YOUR OTHER PRESCRIPTION MEDICATIONS PRIOR TO SURGERY EXCEPT THE FOLLOWING Hold all vitamins and supplements for 3 days per anesthesiologist. Medications to discontinue per physician Please inquire of Dr Bruno if need to hold aspirin and advil. Date to take last dose Please no make-up, nail faroese, hairspray, perfume, deodorant, or body powder the day of surgery.? No jewelry (including any body piercings) or valuables the day of surgery, leave them at home.? Please take a shower or bath the night before, or the morning of, surgery with an antibacterial soap.? Wear comfortable, loose fitting clothing.? - Jewelry must be removed prior to entering the operating room.? Rings and piercings that are not removed may be cut off. - The hospital will not accept responsibility for valuables.? - Please leave all valuables, including medications, at home the day of surgery. If you are going home after surgery, a licensed race car driver must drive you home.? - NO public transportation without another adult if you receive anesthesia. - We recommend that an adult stay with you for 24 hours following discharge. - We also recommend that you do not drive, make important decision, drink alcoholic beverages, or take any drugs that were not prescribed by your health care provider for at least 24 hours after your discharge time. Follow any additional instructions given to you from your surgeon. Telephone instructions given to __Kathy___and asked if any additional questions and then verbalized understanding. Patient advised to call surgeon office or pre surgery nurse liaison [phone] if any additional questions.
--- OUTSIDE RECORDS SUMMARY | 2025-05-22 01:40 | XMS_ITS | Clinical Summary ---
Author Organization [facility] [employer] Address [address] [facility] [place] [address] Care Team Providers Care Nursing Information Systems Coordinator Name Role Phone Unavailable Primary Care Provider Unavailabl e Source Comments [facility],non-owned Affiliates and Associated Physician Practices is amultiple site organization consisting of ambulatory clinics and hospital sitesin [place], [place], [place] and [place]. This disclosure is being madepursuant to the Care Everywhere program and may not contain all information available regarding this patient. Last updated 18.[facility] [employer] Allergies Active Allergy Reactions Criticality Noted Date Comments Aspirin GI Discomfort 01/01/2021 Morphine CAN INTAKE WORKER Dysfunction 01/01/2021 Medications * Be aware [...]
--- OUTSIDE RECORDS SUMMARY | 2025-05-22 01:40 | XMS_ITS | Clinical Summary ---
Author Organization [facility] [address] Address [address] [place] [address] Care Team Providers Care Gas Booster Engineer Name Role Phone Hortensia Mulligan NP Primary Care Provider [phone] Social History Tobacco Use Types Packs/Day Years [...] patient's age to complete this topic Insurance [employer] OOS Care Teams Gas Booster Engineer Relationship Specialty Start Date End Date Hortensia Mulligan NP [address] [facility] [address] [address] PCP - General Cardiovascular Disease 04/15/24
--- OUTSIDE RECORDS SUMMARY | 2025-05-22 01:40 | XMS_ITS | Referral Summary ---
Author Organization [facility] [address] Address [address] [place] [address] Care Team Providers Care Feed Weigher Name Role Phone Hortensia Mulligan NP Primary Care Provider [phone] Social History Tobacco Use Types Packs/Day Years [...] Plan of Treatment Not on file Insurance [employer] Care Teams Feed Weigher Relationship Specialty Start Date End Date Hortensia Mulligan NP [facility] [place] [address] [place] [address] PCP - General Cardiovascular Disease 04/15/24
--- OUTSIDE RECORDS SUMMARY | 2025-05-22 01:40 | XMS_ITS | Clinical Summary ---
Author Organization [facility] Address [address] [place] [address] Care Team Providers Care Fabricator Special Items Name Role Phone Bk Penn DO Primary Care Provider [phone] Allergies Active Allergy Reactions Criticality Noted Date [...] patient's age to complete this topic Insurance [place] [address] [place] [id number] Advance Directives Documents on File Type Date Recorded Patient Environmental Studies Faculty Member Expl anation Advance Directives and Living Will 09/06/2015 12:00 AM ADVANCED DIRECTIVES Care Teams Fabricator Special Items Relationship Specialty Start Date End Date Bk Penn DO [address] [facility] [address] [place] [address] PCP - General INTERNAL MEDICINE 08/11/23
--- NOTE | 2025-05-22 07:09 | WPDHPUPDATE1 ---
History and Physical Update Update Date/Time: 05/22/25 07:09 History and Physical has been reviewed, including an updated exam of the patient. There are NO changes in the patient's condition. Risks, benefits, and alternatives have been discussed and questions answered. Patient agrees to proceed with HSC/D&C/polypectomy.
[2025-05-22 11:15] VITALS: BP 120/67; PULSE 92; RESP 20; TEMP 36.7; O2SAT 98
[2025-05-22] MEDS: ACETAMINOPHEN 500 MG TABLET 1000 MG PO (11:26)
[2025-05-22] MEDS: LACTATED RINGERS 1,000 ML 30 ML IV CONT (11:38)
--- NOTE | 2025-05-22 12:40 | WPDANESEPPF ---
Anes - Initial Pre Proc Eval Procedure: Operation Date: 05/22/25 13:00 Proposed Procedures p Hysteroscopy Dilation and Curettage with Polypectomy - Patricia Bruno MD Date/Time: 05/22/25 12:40 Surgeon: Patricia Bruno MD Pre Op Diagnosis: post menopausal bleeding Patient Data Age: 50 Gender: F Height: 1.65 m Weight: 107.6 kg Last Vital Signs Temp 36.7 C 05/22/25 11:15 Pulse 92 05/22/25 11:15 Resp 20 05/22/25 11:15 BP 120/67 05/22/25 11:15 Pulse Ox 98 05/22/25 11:15 O2 Del Method Room Air 05/22/25 11:15 Allergies Allergy/AdvReac Type Severity Reaction Status Date / Time prednisone Allergy Intermediate vomit Verified 05/22/25 11:11 morphine Allergy Unknown Anaphylactic Verified 05/22/25 11:11 Shock doxycycline Allergy Swelling Verified 05/22/25 11:11 of the Eye Home Medications ?Medication ?Instructions ?Recorded ?Confirmed ?Type aspirin 81 mg tablet,delayed 81 mg PO DAILY 03/27/21 05/22/25 History release (Adult Aspirin Regimen) BPAP Equipment #1 ea 03/01/24 05/18/25 Rx atorvastatin 10 mg tablet See Rx Instructions .Route 11/21/24 05/22/25 Rx .COMPLEX #90 tabs albuterol sulfate 90 mcg/actuation 2 inh inhalation QID PRN shortness 12/19/24 05/22/25 Rx aerosol inhaler of breath or wheezing #8.5 grams sertraline 50 mg tablet 50 mg PO DAILY #90 tabs 02/13/25 05/22/25 Rx cholecalciferol (vitamin D3) 1,250 1,250 mcg PO WEEKLY #8 tabs 02/15/25 05/22/25 Rx mcg (50,000 unit) tablet sertraline 100 mg tablet See Rx Instructions .Route 02/15/25 05/22/25 Rx .COMPLEX #90 tabs trazodone 50 mg tablet 50 mg PO QHS PRN insomnia 04/04/25 05/22/25 History tirzepatide (weight loss) 2.5 2.5 mg (0.5 mL) subcut WEEKLY #2 mL 07/08/25 07/31/25 Rx mg/0.5 mL subcutaneous pen injector (Zepbound) acetaminophen 500 mg tablet 500 mg PO Q6H PRN pain 05/18/25 05/22/25 History diphenhydramine 25 2 tablet PO HS 05/18/25 05/22/25 History mg-acetaminophen 500 mg tablet (Acetaminophen PM Extra Strength) ibuprofen 200 mg tablet (Advil) 400 mg PO Q6H PRN pain 05/18/25 05/22/25 History Patient hx anesthesia problems: none Family hx anesthesia problems: none Results Review: All pre-operative results and documents have been reviewed as part of the pre-operative evaluation. [facility] Past Medical History Medical History (Updated 05/22/25 @ 08:16 by Santiago Jay DO) Anxiety JESSICA (obstructive sleep apnea) Endometriosis Tobacco abuse Blurred vision Hospital discharge follow-up Leg cramping Fatigue Hypersomnia Bronchitis Right wrist pain Other tics of organic origin IBS (irritable bowel syndrome) Mixed hyperlipidemia Chronic headaches Allergic asthma Tobacco dependence due to cigarettes Quit 1 year ago. Surgical History Surgical History (Updated 04/27/25 @ 14:12 by Trena Hernandez CMA) H/O LEEP possibly in her early 20's H/O colposcopy with cervical biopsy H/O exploratory laparotomy History of tubal ligation Family History Family History Father Diabetes mellitus Family history of cardiovascular disease Family history of malignant neoplasm of brain, Onset Age: 62 Depression Heart disease Hypertension Mother Diabetes mellitus Hypertension Patient's mother is in good health Family history of cardiovascular disease Sibling Patient's sister is in good health Patient's brother is in good health Grandparent Depression Cancer Alcoholism Social History Social History (Updated 04/27/25 @ 14:09 by Trena Hernandez CMA) Social History: Caffeine- Smoking packs per day: 0.5 Smoking cigarettes per day: 10.0 Smoking status: Former smoker Tobacco type: cigarettes Second hand tobacco smoke exposure: Yes Smoking end date: 08/26/22 Alcohol intake: never Substance use: never Substance use type: does not use Do You Feel Safe in your Home?: Yes Lack of Transportation: No Lack of Food: Sometimes True Current Housing: Decline to Answer Concerned About Future Housing: Decline to Answer Difficulty Paying Gas/Electric Bills: Decline to Answer Difficulty Paying for Meds: Decline to Answer Currently Unemployed: Decline to Answer Education: Decline to Answer Difficulty w/ Childcare or Family Care: Decline to Answer Living arrangements: with family Additional living arrangements comments: Occupation/Education: occupation Additional occupation/education comments: [employer] Gender identity (if verbalized by the patient): Female Sexual Orientation (if Verbalized by the Patient): Straight or Heterosexual Anes - Eval Final PreProcedure Day of Procedure 05/22/25 12:40 Patient weight: obese Heart: regular rate and rhythm Lungs: clear to auscultation Airway: Mallampati scale class II Neurological: alert and oriented Last oral intake: >/= 8 hours ASA classification: III Emergent: no Anesthetic plan: proceed Anesthesia type and monitoring: general LMA and standard monitoring Results Review: All pre-operative results and documents have been reviewed as part of the pre-operative evaluation. Informed Consent: The patient's anesthetic plan and its attendant risks and benefits were discussed with the patient/family/POA. Questions were solicited and answers provided to the satisfaction of the patient/family/POA.
--- NOTE | 2025-05-22 13:24 | S_PTH ---
PATIENT: Prema Oswald LOC: [facility] U#:[id number] AGE/SX: 50/F ROOM: RE05/22/[address]: Patricia Bruno MD : 1975 BED: DIS: 05/22/2025 SPEC #: [id number] RECD: 05/22/25 14:46 STATUS: SHILOH REQ #: [id number] YURIY: 05/22/25 13:[address]: Patricia Bruno DEPT: [facility] Surgical RECD BY: Sheree Mancilla ENTERED: 05/22/25 14:46 SP TYPE: Surgical OTHR DR: Bk Penn DO Tissues: A - Endometrial Curettings Procedures: Hematoxylin and Eosin Stain Gross and Microscopic Level 4
[2025-05-22 13:33] VITALS: BP 123/63; PULSE 96; RESP 16; O2SAT 81
--- NOTE | 2025-05-22 13:33 | P.OP_ITS ---
Procedure Note - Detailed Date of Procedure 05/22/25 Pre-op Diagnosis post menopausal bleeding Post-op Diagnosis Other (endometrial polyps) Procedure Performed Hysteroscopy, D&C, polypectomy Surgeon Patricia Bruno MD Anesthesia MAC Findings Large polyp protruding from the cervix. 3 additional polyps noted within the endometrial cavity, removed using the Avetta tissue shaver. Bilateral tubal ostia visualized. good hemostasis at end of case. Description of Procedure Prema was taken to the operating room where she was placed under sedation without complications. She was then prepped and draped in the usual sterile fashion in the dorsal lithotomy position with her legs in low Jorge stirrups. A time-out was performed and no perioperative antibiotics were indicated. A bivalve speculum was placed within the vagina where the cervix was easily ident ified. The anterior lip of the cervix was grasped with a single-tooth tenaculum. The polyp protruding out of the cervix was grasped with a polyp forceps and twisted along it's stalk until it was removed. The hysteroscope was advanced into the uterine cavity with the above findings noted. Using the [employer] Avetta tissue shaver, the polps inside the endometrial cavity were all removed. A curettage was then performed until a good uterine cry was felt throughout the uterus. Good hemostasis was noted. All instruments were removed from the vagina. Sponge, lap, instrument, and needle counts were correct at the end of the procedure. Patient was awoken from anesthesia and taken to recovery with plans of same-day discharge home. Estimated Blood Loss 3 IV Fluids 600 Pathology Yes (endometrial polyps/shavings/curetting's) Complications No immediate complications Condition Stable Disposition Same day [facility] Billing Surgery - Charge Forward: Surgery Billing
[2025-05-22] MEDS: fentaNYL CITRATE INJ (*CRX) 100 MCG/2 ML VIAL 25 MCG IV PUSH ×4 (13:43→14:03)
[2025-05-22 14:00] VITALS: BP 108/70; PULSE 78; RESP 20
[2025-05-22] MEDS: oxyCODONE HCL (*CRX) 5 MG TAB IR PO (14:10)
[2025-05-22 14:30] VITALS: BP 127/65; PULSE 65; RESP 20
[2025-05-22] MEDS: KETOROLAC 15 MG/ML VIAL (*BKC) IV PUSH (14:43)
[2025-05-22 15:00] VITALS: BP 133/66; PULSE 75; RESP 20
[2025-05-22 15:30] VITALS: BP 117/67; PULSE 78; RESP 20
== END 2025-05-22 15:36 | disposition home or self-care (01) ==
PROVIDERS: PCP Internal Medicine; Visit Provider Obstetrics & Gynecology
PROC: 0U5B8ZZ Destruction of Endometrium, Via Natural or Artificial Opening Endoscopic (ICD-10-PCS; CPT 58563; principal; 2025-05-22 13:00)
DX: N84.0 Polyp of corpus uteri (principal); K58.9 Irritable bowel syndrome, unspecified; E78.2 Mixed hyperlipidemia; J45.909 Unspecified asthma, uncomplicated; G47.33 Obstructive sleep apnea (adult) (pediatric); N80.9 Endometriosis, unspecified; G47.10 Hypersomnia, unspecified; R51.9 Headache, unspecified; E66.9 Obesity, unspecified; Z68.39 Body mass index [BMI] 39.0-39.9, adult; Z79.82 Long term (current) use of aspirin; Z79.51 Long term (current) use of inhaled steroids; Z79.85 Long-term (current) use of injectable non-insulin antidiabetic drugs; Z79.1 Long term (current) use of non-steroidal anti-inflammatories (NSAID); Z99.89 Dependence on other enabling machines and devices; Z98.890 Other specified postprocedural states; Z98.51 Tubal ligation status; Z87.891 Personal history of nicotine dependence; Z80.8 Family history of malignant neoplasm of other organs or systems; Z82.49 Family history of ischemic heart disease and other diseases of the circulatory system
CPT/HCPCS: 58558; 88305; A9270; J1885; J2250; J2704; J3010; J7120